=== PATIENT | female | born 1980 | race Caucasian/White ===

== ENCOUNTER 2020-09-30 11:15 | Emergency (ER) | payer OTHER, SELFPAY ==
[2020-09-30 11:20] VITALS: BP 155/88; PULSE 79; RESP 15; TEMP 37.2; O2SAT 99; BMI 23.8
[2020-09-30 11:29] VITALS: PULSE 61; O2SAT 100
[2020-09-30 11:30] VITALS: PULSE 62; O2SAT 100
[2020-09-30 11:43] LABS: Add Manual Diff / Slide Review NO; Basophils Absolute Auto 0 /uL (0-100); Basophils Percent Auto 0.3 % (0-2); Eosinophils Absolute Auto 100 /uL (0-450); Eosinophils Percent Auto 1.3 % (2-4); Hemoglobin 15.6 g/dL (12.0-16.0); Lymphocytes Absolute Auto 900 /uL (1100-4500); Lymphocytes Percent Auto 17.5 % (25-40); Mean Corpuscular HGB Conc 33.9 % (30-36); Mean Corpuscular Hemoglobin 33.3 PG (26-34); Mean Corpuscular Volume 98.3 fL (80-100); Monocytes Absolute Auto 400 /uL (0-900); Monocytes Percent Auto 7.5 % (3-14); Neutrophils Absolute Auto 3900 /uL (1500-7000); Neutrophils Percent Auto 73.4 % (50-75); Platelet Count 216 X10^3/uL (150-400); Red Blood Cell Count 4.68 X10^6/uL (4.0-5.2); White Blood Cell Count 5.3 X10^3/uL (4.5-11.0)
[2020-09-30 11:44] LABS: Prothrombin Time 11.1 SECONDS (10.1-12.7)
[2020-09-30 11:47] LABS: PTT Partial Thromboplastin Tim 27 SECONDS (26.4-36.2)
[2020-09-30 11:49] LABS: Alanine Aminotransferase 19 IU/L (<35); Albumin 5.1 g/dL (3.5-5.0); Albumin Globulin Ratio 1.2 (1.0-2.8); Alkaline Phosphatase 49 U/L (38-126); Aspartate Aminotransferase 39 IU/L (14-36); BUN Creatinine Ratio 23.1 (6-22); Bilirubin Total 1.1 mg/dL (0.2-1.3); Blood Urea Nitrogen 12 mg/dL (7-17); Carbon Dioxide 27 mmol/L (22-32); Chloride 101 mmol/L (98-107); Estimated Glomerular Filt Rate > 60.0 mL/min (>60); Globulin 4.1 g/dL (1.7-4.1); Glucose 100 mg/dL (70-100); Lipase 188 U/L (23-300); Potassium 4.3 mmol/L (3.4-5.1); Sodium 136 mmol/L (137-145); Total Protein 9.2 g/dL (6.3-8.2)
[2020-09-30 11:51] LABS: HEMOLYSIS 87 (0-50)
[2020-09-30 11:51] LABS: Bacteria Urine None Seen; RBC Urine None Seen (0-5/HPF)
[2020-09-30 11:58] LABS: Culture Indicated Urine Cult Not Indicated; Squamous Epithelial Cell Urine 5-10 /HPF (0-5/HPF); WBC Urine 1-5/HPF (0-5/HPF)
[2020-09-30 12:00] VITALS: PULSE 60; O2SAT 100
--- NOTE | 2020-09-30 12:09 | DI.CT.S_ITS ---
PROCEDURE: CT ABDOMEN PELVIS W CON INDICATIONS: RLQ pain, rebound tenderness TECHNIQUE: After the administration of intravenous contrast, 5 mm thick sections acquired from the diaphragm to the symphysis. 5 mm coronal and sagittal reformats were acquired. For radiation dose reduction, the following was used: automated exposure control, adjustment of mA and/or kV according to patient size. COMPARISON: None. FINDINGS: Image quality: Excellent. ABDOMEN: Lung bases: Lung bases are clear. Heart size is normal. Solid organs: Liver is normal in size and enhancement. Gallbladder is within normal limits. Biliary system is non dilated. Pancreas enhances normally. Spleen is normal in size and enhancement. No adrenal nodules. Kidneys demonstrate normal size and enhancement, without hydronephrosis. Peritoneum and bowel: Bowel loops demonstrate normal wall thickness and caliber. No free fluid or air. Appendix is visualized and is normal in size and appearance. Sigmoid diverticulosis is seen, no CT evidence of acute diverticulitis. Nodes and vessels: No retroperitoneal or mesenteric adenopathy by size criteria. Aorta and inferior vena cava are normal in size. Miscellaneous: No ventral hernias. PELVIS: Genitourinary: Bladder wall thickness is normal. 1.7 x 1.9 cm left ovarian cystic structure is noted. No gross abnormality is seen in uterus and right adnexa. Miscellaneous: No inguinal hernias or adenopathy. Bones: No suspicious bony lesions. No vertebral body compression fractures. IMPRESSION: 1. No bowel obstruction. Normal appendix. No abnormal bowel wall thickening. No free fluid or free air. Sigmoid diverticulosis without evidence of acute diverticulitis. 2. Left ovarian cyst as above. 3. No renal stone or hydronephrosis. Dictated by: Christopher Berrios M.D. on 09/30/2020 at 13:24 Approved by: Christopher Berrios M.D. on 09/30/2020 at 13:31
[2020-09-30] MEDS: KETOROLAC 60 MG/2 ML VIAL 30 MG IV (12:21)
[2020-09-30] MEDS: ONDANSETRON 4 MG/2 ML INJ IV (12:21)
[2020-09-30 12:30] VITALS: PULSE 54; O2SAT 100
--- NOTE | 2020-09-30 12:31 | ED.ABDPAIN ---
HPI - Abdominal Pain General Chief Complaint: Abdominal Pain Stated Complaint: center/right side abd pain x7 days Time Seen by Provider: 09/30/20 12:00 Source: patient Mode of arrival: Ambulatory Limitations: no limitations History of Present Illness HPI narrative: 40yo female history of cholecystectomy, presents emergency department for right lower quadrant pain for the past 7 days. She states she has also felt pressure in that area, gassy, nauseated, and has had intermittent diarrhea. Patient states she has been significantly nauseated without vomiting now. [place] was sent to the emergency department for further evaluation. She denies any dysuria, chest pain, shortness of breath, fevers, cough, or any other concerns. Related Data Allergies Allergy/AdvReac Type Severity Reaction Status Date / Time No Known Drug Allergies Allergy Verified 09/30/20 11:27 Review of Systems Review of Systems Narrative: REVIEW OF SYSTEMS: GENERAL: Denies fever. HENT: No head trauma CARDIOVASCULAR: No chest pain. RESPIRATORY: No shortness of breath or cough. GASTROINTESTINAL: Complains of RLQ abdominal pain, see HPI GENITOURINARY: No flank pain or dysuria. MUSCULOSKELETAL: No pain, weakness, or trauma. INTEGUMENTARY: No rash. Patient History Medical History No significant medical problems Social History Smoking Status: Unknown if ever smoked Smoking Status: Unknown if ever smoked alcohol intake frequency: 3 or more drinks per day Substance Use Type: does not use Exam Initial Vital Signs Initial Vital Signs: Vital Signs Temperature 99.0 F 09/30/20 11:20 Pulse Rate 79 09/30/20 11:20 Respiratory Rate 15 09/30/20 11:20 Blood Pressure 155/88 H 09/30/20 11:20 Pulse Oximetry 99 09/30/20 11:20 PHYSICAL EXAMINATION: GENERAL: 40-year-old female, appears to be in moderate pain. No significant distress. HENT: Normocephalic, atraumatic. EYES: Conjunctiva pink, sclera white, no periorbital swelling. CARDIOVASCULAR: S1 and S2 sounds normal. Regular rate and rhythm, no murmurs, clicks, or bruits. No pedal edema. RESPIRATORY: Normal respiratory rate, trachea midline, airway patent. No stridor, nasal flaring or accessory muscle use. Lungs are clear in all [place] without wheeze, rhonchi, or crackles. GASTROINTESTINAL: Bowel sounds normoactive. Abdomen is soft, RLQ tenderness, rebound tenderness present. No organomegaly, no palpable masses. GENITALURINARY: No flank tenderness. MUSCULOSKELETAL: Normal gait and coordination. Equal tone and mass bilaterally. EXTREMITIES: CMS intact, no pedal edema. SKIN: Warm, dry, soft, appropriate color for ethnicity. No lesions, rashes, or wounds to visualized areas. NEURO: Alert and Oriented X 3. Good coordination. No ataxia, or sensory deficits, or cognitive issues. PSYCH: Appropriate affect and mood. Course Orders Ordered: ED Orders 09/30/20 11:20 Complete Blood Count AUTO DIFF Stat Comprehensive Metabolic Panel Stat Lipase Stat Partial Thromboplastin Time Stat Prothrombin Time INR Stat 09/30/20 11:29 EKG-12 Lead Stat 09/30/20 11:38 Urine Microscopic Stat 09/30/20 12:09 CT abdomen pelvis w con Stat Discontinued Medications Ketorolac Tromethamine (Ketorolac 60 Mg/2 Ml Vial) 30 mg IV NOW ONE Stop: 09/30/20 12:10 Last Admin: 09/30/20 12:21 Dose: 30 mg Documented by: LOY Ondansetron HCl (Ondansetron 4 Mg/2 Ml Inj) 4 mg IV NOW ONE Stop: 09/30/20 12:10 Last Admin: 09/30/20 12:21 Dose: 4 mg Documented by: LOY Vital Signs Vital signs: Vital Signs - 8 hr 09/30/20 11:20 09/30/20 11:29 09/30/20 11:30 Temperature 99.0 F Pulse Rate 79 61 62 Respiratory Rate 15 Blood Pressure 155/88 H Pulse Oximetry 99 100 100 09/30/20 12:00 Temperature Pulse Rate 60 Respiratory Rate Blood Pressure Pulse Oximetry 100 MDM - Abdominal Pain Lab Data Result diagrams: 09/30/20 11:20 09/30/20 11:20 Labs: Lab Results 09/30/20 09/30/20 09/30/20 Range/Units 11:20 11:20 11:20 WBC 5.3 (4.5-11.0) X10^3/uL RBC 4.68 (4.0-5.2) X10^6/uL Hgb 15.6 (12.0-16.0) g/dL Hct 46.0 (36-46) % MCV 98.3 (80-100) fL MCH 33.3 (26-34) PG MCHC 33.9 (30-36) % RDW 13.0 (11.6-14.8) % Plt Count 216 (150-400) X10^3/uL Neut % (Auto) 73.4 (50-75) % Lymph % (Auto) 17.5 L (25-40) % Morris % (Auto) 7.5 (3-14) % Eos % (Auto) 1.3 L (2-4) % Baso % (Auto) 0.3 (0-2) % Neut # (Auto) 3900 (6610-4208) /uL Lymph # (Auto) 900 L (0465-3262) /uL Morris # (Auto) 400 (0-900) /uL Eos # (Auto) 100 (0-450) /uL Baso # (Auto) 0 (0-100) /uL PT 11.1 (10.1-12.7) SECONDS INR 1.0 (0.9-1.3) APTT 27 (26.4-36.2) SECONDS Sodium 136 L (137-145) mmol/L Potassium 4.3 (3.4-5.1) mmol/L Chloride 101 (98-107) mmol/L Carbon Dioxide 27 (22-32) mmol/L BUN 12 (7-17) mg/dL Creatinine 0.52 (0.52-1.04) mg/dL Estimated GFR > 60.0 (>60) mL/min BUN/Creatinine Ratio 23.1 H (6-22) Glucose 100 (70-100) mg/dL Calcium 10.0 (8.4-10.2) mg/dL Total Bilirubin 1.1 (0.2-1.3) mg/dL AST 39 H (14-36) IU/L ALT 19 (<35) IU/L Alkaline Phosphatase 49 (38-126) U/L Total Protein 9.2 H (6.3-8.2) g/dL Albumin 5.1 H (3.5-5.0) g/dL Globulin 4.1 (1.7-4.1) g/dL Albumin/Globulin Ratio 1.2 (1.0-2.8) Lipase 188 (23-300) U/L Urine RBC (0-5/HPF) Urine WBC (0-5/HPF) Ur Squamous Epith Cells (0-5/HPF) Urine Bacteria (None) Ur Culture Indicated? 09/30/20 Range/Units 11:38 WBC (4.5-11.0) X10^3/uL RBC (4.0-5.2) X10^6/uL Hgb (12.0-16.0) g/dL Hct (36-46) % MCV (80-100) fL MCH (26-34) PG MCHC (30-36) % RDW (11.6-14.8) % Plt Count (150-400) X10^3/uL Neut % (Auto) (50-75) % Lymph % (Auto) (25-40) % Morris % (Auto) (3-14) % Eos % (Auto) (2-4) % Baso % (Auto) (0-2) % Neut # (Auto) (4199-8017) /uL Lymph # (Auto) (4794-8841) /uL Morris # (Auto) (0-900) /uL Eos # (Auto) (0-450) /uL Baso # (Auto) (0-100) /uL PT (10.1-12.7) SECONDS INR (0.9-1.3) APTT (26.4-36.2) SECONDS Sodium (137-145) mmol/L Potassium (3.4-5.1) mmol/L Chloride (98-107) mmol/L Carbon Dioxide (22-32) mmol/L BUN (7-17) mg/dL Creatinine (0.52-1.04) mg/dL Estimated GFR (>60) mL/min BUN/Creatinine Ratio (6-22) Glucose (70-100) mg/dL Calcium (8.4-10.2) mg/dL Total Bilirubin (0.2-1.3) mg/dL AST (14-36) IU/L ALT (<35) IU/L Alkaline Phosphatase (38-126) U/L Total Protein (6.3-8.2) g/dL Albumin (3.5-5.0) g/dL Globulin (1.7-4.1) g/dL Albumin/Globulin Ratio (1.0-2.8) Lipase (23-300) U/L Urine RBC None seen (0-5/HPF) Urine WBC 1-5/hpf (0-5/HPF) Ur Squamous Epith Cells 5-10 /hpf H (0-5/HPF) Urine Bacteria None seen (None) Ur Culture Indicated? Cult not indicated Point of care testing: Point of Care Testing Test Results Negative Urine Dip Bedside Urine Glucose Negative Bedside Urine Bilirubin - Negative Bedside Urine Ketone - Negative Urine Specific [place] 1.015 Bedside Urine Occult Blood - Negative Bedside Urine pH 6 Bedside Urine Protein - Negative Bedside Urine Urobilinogen - Negative Bedside Urine Nitrite - Negative Bedside Urine Leukocytes +/- 15 Esterase
--- NOTE | 2020-09-30 12:51 | ED_ITS ---
HPI - Abdominal Pain <WILY Duffy - Last Filed: 09/30/20 19:59> General Chief Complaint: Abdominal Pain Stated Complaint: center/right side abd pain x7 days Time Seen by Provider: 09/30/20 12:00 Source: patient Mode of arrival: Ambulatory Limitations: no limitations History of Present Illness HPI narrative: 40-year-old female with a history of cholecystectomy, presents to the emergency department for right lower quadrant pain for the past 7 days. She states she has had pressure in that area, intermittent nausea without vomiting, and intermittent diarrhea for the past 7 days. She was seen and evaluated on based today in sent to the ED for further evaluation. Patient denies any fevers, cough, shortness of breath, chest pain, dizziness, or dysuria. Related Data Previous Rx's Medication Instructions Recorded ondansetron 4 mg PO Q6H PRN #10 tab 09/30/20 Allergies Allergy/AdvReac Type Severity Reaction Status Date / Time No Known Drug Allergies Allergy Verified 09/30/20 11:27 Review of Systems <WILY Duffy - Last Filed: 09/30/20 19:59> Review of Systems Narrative: REVIEW OF SYSTEMS: GENERAL: Denies fever, chills, malaise, or wt. loss. HENT: No head trauma. CARDIOVASCULAR: No chest pain. RESPIRATORY: No shortness of breath or cough. GASTROINTESTINAL: Complains of RLQ abdominal pain, see HPI GENITOURINARY: No flank pain. MUSCULOSKELETAL: No pain, weakness, or trauma. INTEGUMENTARY: No rash, lesions, or pruritus. NEURO: No numbness or tingling. PSYCH: No behavior or mood changes. Patient History <WILY Duffy - Last Filed: 09/30/20 19:59> Medical History No significant medical problems Social History Smoking Status: Unknown if ever smoked Smoking Status: Unknown if ever smoked alcohol intake frequency: 3 or more drinks per day Substance Use Type: does not use Exam <WILY Duffy - Last Filed: 09/30/20 19:59> Initial Vital Signs Initial Vital Signs: Vital Signs Temperature 99.0 F 09/30/20 11:20 Pulse Rate 79 09/30/20 11:20 Respiratory Rate 15 09/30/20 11:20 Blood Pressure 155/88 H 09/30/20 11:20 Pulse Oximetry 99 09/30/20 11:20 PHYSICAL EXAMINATION: GENERAL: 40-year-old female appears to be uncomfortable but no distress or severe pain. HENT: Normocephalic, atraumatic. Hearing intact. Oral mucosa is pink and moist. EYES: Conjunctiva pink, sclera white, no periorbital swelling. CARDIOVASCULAR: S1 and S2 sounds normal. Regular rate and rhythm, no murmurs, clicks, or bruits. No pedal edema. RESPIRATORY: Normal respiratory rate, trachea midline, airway patent. No stridor, nasal flaring or accessory muscle use. Lungs are clear in all hobson without wheeze, rhonchi, or crackles. GASTROINTESTINAL: Bowel sounds normoactive. Abdomen is soft and right lower quadrant tenderness, rebound tenderness present.. No organomegaly, no palpable masses. GENITALURINARY: No flank tenderness. MUSCULOSKELETAL: Normal gait and coordination. Equal tone and mass bilaterally. EXTREMITIES: CMS intact, no pedal edema. SKIN: Warm, dry, soft, appropriate color for ethnicity. No lesions, rashes, or wounds to visualized areas. NEURO: Alert and Oriented X 3. Good coordination. PSYCH: Appropriate affect and mood. <Koki Gray DO - Last Filed: 10/01/20 07:29> Initial Vital Signs Initial Vital Signs: Vital Signs Temperature 99.0 F 09/30/20 11:20 Pulse Rate 79 09/30/20 11:20 Respiratory Rate 15 09/30/20 11:20 Blood Pressure 155/88 H 09/30/20 11:20 Pulse Oximetry 99 09/30/20 11:20 Course <WILY Duffy - Last Filed: 09/30/20 19:59> Course Course Narrative: Patient states decreased pain and nausea after admit occasion menstruation. Orders Ordered: Discontinued Medications Famotidine (Pepcid) 20 mg in 50 mls @ 200 mls/hr IV NOW ONE Stop: 09/30/20 13:54 Last Admin: 09/30/20 13:57 Dose: Not Given Documented by: LOY Ketorolac Tromethamine (Ketorolac 60 Mg/2 Ml Vial) 30 mg IV NOW ONE Stop: 09/30/20 12:10 Last Admin: 09/30/20 12:21 Dose: 30 mg Documented by: LOY Ondansetron HCl (Ondansetron 4 Mg/2 Ml Inj) 4 mg IV NOW ONE Stop: 09/30/20 12:10 Last Admin: 09/30/20 12:21 Dose: 4 mg Documented by: LOY Vital Signs Vital signs: Vital Signs - 8 hr 09/30/20 12:00 09/30/20 12:30 09/30/20 14:16 Pulse Rate 60 54 L 63 Respiratory Rate 18 Blood Pressure 118/80 Pulse Oximetry 100 100 98 <Koki Gray DO - Last Filed: 10/01/20 07:29> Orders Ordered: Discontinued Medications Famotidine (Pepcid) 20 mg in 50 mls @ 200 mls/hr IV NOW ONE Stop: 09/30/20 13:54 Last Admin: 09/30/20 13:57 Dose: Not Given Documented by: LOY Ketorolac Tromethamine (Ketorolac 60 Mg/2 Ml Vial) 30 mg IV NOW ONE Stop: 09/30/20 12:10 Last Admin: 09/30/20 12:21 Dose: 30 mg Documented by: LOY Ondansetron HCl (Ondansetron 4 Mg/2 Ml Inj) 4 mg IV NOW ONE Stop: 09/30/20 12:10 Last Admin: 09/30/20 12:21 Dose: 4 mg Documented by: LOY Vital Signs Vital signs: Vital Signs - 8 hr 09/30/20 12:00 09/30/20 12:30 09/30/20 14:16 Pulse Rate 60 54 L 63 Respiratory Rate 18 Blood Pressure 118/80 Pulse Oximetry 100 100 98 MDM - Abdominal Pain <WILY Duffy - Last Filed: 09/30/20 19:59> Medical Records Attestation: I reviewed the patient's medical records. Lab Data Attestation: I reviewed the patient's lab results. Result diagrams: 09/30/20 11:20 09/30/20 11:20 Labs: Lab Results 09/30/20 09/30/20 09/30/20 Range/Units 11:20 11:20 11:20 WBC 5.3 (4.5-11.0) X10^3/uL RBC 4.68 (4.0-5.2) X10^6/uL Hgb 15.6 (12.0-16.0) g/dL Hct 46.0 (36-46) % MCV 98.3 (80-100) fL MCH 33.3 (26-34) PG MCHC 33.9 (30-36) % RDW 13.0 (11.6-14.8) % Plt Count 216 (150-400) X10^3/uL Neut % (Auto) 73.4 (50-75) % Lymph % (Auto) 17.5 L (25-40) % Mobile % (Auto) 7.5 (3-14) % Eos % (Auto) 1.3 L (2-4) % Baso % (Auto) 0.3 (0-2) % Neut # (Auto) 3900 (2571-7573) /uL Lymph # (Auto) 900 L (1392-5683) /uL Mobile # (Auto) 400 (0-900) /uL Eos # (Auto) 100 (0-450) /uL Baso # (Auto) 0 (0-100) /uL PT 11.1 (10.1-12.7) SECONDS INR 1.0 (0.9-1.3) APTT 27 (26.4-36.2) SECONDS Sodium 136 L (137-145) mmol/L Potassium 4.3 (3.4-5.1) mmol/L Chloride 101 (98-107) mmol/L Carbon Dioxide 27 (22-32) mmol/L BUN 12 (7-17) mg/dL Creatinine 0.52 (0.52-1.04) mg/dL Estimated GFR > 60.0 (>60) mL/min BUN/Creatinine Ratio 23.1 H (6-22) Glucose 100 (70-100) mg/dL Calcium 10.0 (8.4-10.2) mg/dL Total Bilirubin 1.1 (0.2-1.3) mg/dL AST 39 H (14-36) IU/L ALT 19 (<35) IU/L Alkaline Phosphatase 49 (38-126) U/L Total Protein 9.2 H (6.3-8.2) g/dL Albumin 5.1 H (3.5-5.0) g/dL Globulin 4.1 (1.7-4.1) g/dL Albumin/Globulin Ratio 1.2 (1.0-2.8) Lipase 188 (23-300) U/L Urine RBC (0-5/HPF) Urine WBC (0-5/HPF) Ur Squamous Epith Cells (0-5/HPF) Urine Bacteria (None) Ur Culture Indicated? 09/30/20 Range/Units 11:38 WBC (4.5-11.0) X10^3/uL RBC (4.0-5.2) X10^6/uL Hgb (12.0-16.0) g/dL Hct (36-46) % MCV (80-100) fL MCH (26-34) PG MCHC (30-36) % RDW (11.6-14.8) % Plt Count (150-400) X10^3/uL Neut % (Auto) (50-75) % Lymph % (Auto) (25-40) % Mobile % (Auto) (3-14) % Eos % (Auto) (2-4) % Baso % (Auto) (0-2) % Neut # (Auto) (8782-6012) /uL Lymph # (Auto) (3836-8315) /uL Mobile # (Auto) (0-900) /uL Eos # (Auto) (0-450) /uL Baso # (Auto) (0-100) /uL PT (10.1-12.7) SECONDS INR (0.9-1.3) APTT (26.4-36.2) SECONDS Sodium (137-145) mmol/L Potassium (3.4-5.1) mmol/L Chloride (98-107) mmol/L Carbon Dioxide (22-32) mmol/L BUN (7-17) mg/dL Creatinine (0.52-1.04) mg/dL Estimated GFR (>60) mL/min BUN/Creatinine Ratio (6-22) Glucose (70-100) mg/dL Calcium (8.4-10.2) mg/dL Total Bilirubin (0.2-1.3) mg/dL AST (14-36) IU/L ALT (<35) IU/L Alkaline Phosphatase (38-126) U/L Total Protein (6.3-8.2) g/dL Albumin (3.5-5.0) g/dL Globulin (1.7-4.1) g/dL Albumin/Globulin Ratio (1.0-2.8) Lipase (23-300) U/L Urine RBC None seen (0-5/HPF) Urine WBC 1-5/hpf (0-5/HPF) Ur Squamous Epith Cells 5-10 /hpf H (0-5/HPF) Urine Bacteria None seen (None) Ur Culture Indicated? Cult not indicated Point of care testing: Point of Care Testing Test Results Negative Urine Dip Bedside Urine Glucose Negative Bedside Urine Bilirubin - Negative Bedside Urine Ketone - Negative Urine Specific [place] 1.015 Bedside Urine Occult Blood - Negative Bedside Urine pH 6 Bedside Urine Protein - Negative Bedside Urine Urobilinogen - Negative Bedside Urine Nitrite - Negative Bedside Urine Leukocytes +/- [address] scan - abdomen/pelvis: Radiologist's Impression: [address] [id number] Scan ReportSigned Patient: Dasia Tom [facility]#: [id number]: 1980Acct:[id number]/Sex: 40 / FDate of Service: 09/30/20Loc: EDAccession Number: [id number] Procedure: CT abdomen pelvis w con Ordering Provider: Micki Mullen PROCEDURE: CT ABDOMEN PELVIS W CON INDICATIONS: RLQ pain, rebound tenderness TECHNIQUE: After the administration of intravenous contrast, 5 mm thick sections acquired from the diaphragm to the symphysis. 5 mm coronal and sagittal reformats were acquired. For radiation dose reduction, the following was used: automated exposure control, adjustment of mA and/or kV according to patient size. COMPARISON: None. FINDINGS: Image quality: Excellent. ABDOMEN: Lung bases: Lung bases are clear. Heart size is normal. Solid organs: Liver is normal in size and enhancement. Gallbladder is within normal limits. Biliary system is non dilated. Pancreas enhances normally. Spleen is normal in size and enhancement. No adrenal nodules. Kidneys demonstrate normal size and enhancement, without hydronephrosis. Peritoneum and bowel: Bowel loops demonstrate normal wall thickness and caliber. No free fluid or air. Appendix is visualized and is normal in size and appearance. Sigmoid diverticulosis is seen, no CT evidence of acute diverticulitis. Nodes and vessels: No retroperitoneal or mesenteric adenopathy by size criteria. Aorta and inferior vena cava are normal in size. Miscellaneous: No ventral hernias. PELVIS: Genitourinary: Bladder wall thickness is normal. 1.7 x 1.9 cm left ovarian cystic structure is noted. No gross abnormality is seen in uterus and right adnexa. Miscellaneous: No inguinal hernias or adenopathy. Bones: No suspicious bony lesions. No vertebral body compression fractures. IMPRESSION: 1. No bowel obstruction. Normal appendix. No abnormal bowel wall thickening. No free fluid or free air. Sigmoid diverticulosis without evidence of acute diverticulitis. 2. Left ovarian cyst as above. 3. No renal stone or hydronephrosis. Dictated by: Christopher Berrios M.D. on 09/30/2020 at 13:24 Approved by: Christopher Berrios M.D. on 09/30/2020 at 13:31 MDM Narrative Medical decision making narrative: 40-year-old female presents emergency department for right lower quadrant pain. Differential includes enteritis versus viral etiology. Less likely acute appendicitis or ovarian issues or renal calculi as CT is negative for any suspicious findings that would increased concern for these. Laboratory work is within normal limits, less concern for infection given normal white blood cell count. Less concern for pelvic etiology given lack of vaginal discharge, no pelvic cramping. Urinalysis within normal limits, less concern for UTI. Patient was encouraged to follow up with PCP in the next week for further evaluation and testing. Return precautions given for new or worsening symptoms. She agrees to plan of care verbalized understanding. <Koki Gray, DO - Last Filed: 10/01/20 07:29> Lab Data Labs: Lab Results 09/30/20 09/30/20 09/30/20 Range/Units 11:20 11:20 11:20 WBC 5.3 (4.5-11.0) X10^3/uL RBC 4.68 (4.0-5.2) X10^6/uL Hgb 15.6 (12.0-16.0) g/dL Hct 46.0 (36-46) % MCV 98.3 (80-100) fL MCH 33.3 (26-34) PG MCHC 33.9 (30-36) % RDW 13.0 (11.6-14.8) % Plt Count 216 (150-400) X10^3/uL Neut % (Auto) 73.4 (50-75) % Lymph % (Auto) 17.5 L (25-40) % Mobile % (Auto) 7.5 (3-14) % Eos % (Auto) 1.3 L (2-4) % Baso % (Auto) 0.3 (0-2) % Neut # (Auto) 3900 (6736-1259) /uL Lymph # (Auto) 900 L (5105-5238) /uL Mobile # (Auto) 400 (0-900) /uL Eos # (Auto) 100 (0-450) /uL Baso # (Auto) 0 (0-100) /uL PT 11.1 (10.1-12.7) SECONDS INR 1.0 (0.9-1.3) APTT 27 (26.4-36.2) SECONDS Sodium 136 L (137-145) mmol/L Potassium 4.3 (3.4-5.1) mmol/L Chloride 101 (98-107) mmol/L Carbon Dioxide 27 (22-32) mmol/L BUN 12 (7-17) mg/dL Creatinine 0.52 (0.52-1.04) mg/dL Estimated GFR > 60.0 (>60) mL/min BUN/Creatinine Ratio 23.1 H (6-22) Glucose 100 (70-100) mg/dL Calcium 10.0 (8.4-10.2) mg/dL Total Bilirubin 1.1 (0.2-1.3) mg/dL AST 39 H (14-36) IU/L ALT 19 (<35) IU/L Alkaline Phosphatase 49 (38-126) U/L Total Protein 9.2 H (6.3-8.2) g/dL Albumin 5.1 H (3.5-5.0) g/dL Globulin 4.1 (1.7-4.1) g/dL Albumin/Globulin Ratio 1.2 (1.0-2.8) Lipase 188 (23-300) U/L Urine RBC (0-5/HPF) Urine WBC (0-5/HPF) Ur Squamous Epith Cells (0-5/HPF) Urine Bacteria (None) Ur Culture Indicated? 09/30/20 Range/Units 11:38 WBC (4.5-11.0) X10^3/uL RBC (4.0-5.2) X10^6/uL Hgb (12.0-16.0) g/dL Hct (36-46) % MCV (80-100) fL MCH (26-34) PG MCHC (30-36) % RDW (11.6-14.8) % Plt Count (150-400) X10^3/uL Neut % (Auto) (50-75) % Lymph % (Auto) (25-40) % Mobile % (Auto) (3-14) % Eos % (Auto) (2-4) % Baso % (Auto) (0-2) % Neut # (Auto) (3599-1110) /uL Lymph # (Auto) (1999-4110) /uL Mobile # (Auto) (0-900) /uL Eos # (Auto) (0-450) /uL Baso # (Auto) (0-100) /uL PT (10.1-12.7) SECONDS INR (0.9-1.3) APTT (26.4-36.2) SECONDS Sodium (137-145) mmol/L Potassium (3.4-5.1) mmol/L Chloride (98-107) mmol/L Carbon Dioxide (22-32) mmol/L BUN (7-17) mg/dL Creatinine (0.52-1.04) mg/dL Estimated GFR (>60) mL/min BUN/Creatinine Ratio (6-22) Glucose (70-100) mg/dL Calcium (8.4-10.2) mg/dL Total Bilirubin (0.2-1.3) mg/dL AST (14-36) IU/L ALT (<35) IU/L Alkaline Phosphatase (38-126) U/L Total Protein (6.3-8.2) g/dL Albumin (3.5-5.0) g/dL Globulin (1.7-4.1) g/dL Albumin/Globulin Ratio (1.0-2.8) Lipase (23-300) U/L Urine RBC None seen (0-5/HPF) Urine WBC 1-5/hpf (0-5/HPF) Ur Squamous Epith Cells 5-10 /hpf H (0-5/HPF) Urine Bacteria None seen (None) Ur Culture Indicated? Cult not indicated Point of care testing: Point of Care Testing Test Results Negative Urine Dip Bedside Urine Glucose Negative Bedside Urine Bilirubin - Negative Bedside Urine Ketone - Negative Urine Specific [place] 1.015 Bedside Urine Occult Blood - Negative Bedside Urine pH 6 Bedside Urine Protein - Negative Bedside Urine Urobilinogen - Negative Bedside Urine Nitrite - Negative Bedside Urine Leukocytes +/- 15 Esterase Discharge Plan Departure Patient Disposition: Home Clinical Impression: Abdominal pain Qualifiers: Abdominal location: right lower quadrant Qualified Code(s): R10.31 - Right lower quadrant pain Instructions: Acute Abdominal Pain, DI for Viral Gastroenteritis -- Adult Activity Restrictions/Additional Instructions: Thank you for entrusting me with your care today. As discussed, your CT negative for any concerning findings. Your urine and laboratory results are normal. I am unsure the exact cause of your pain, this may be related to viral illness. I prescribed you some nausea medicine called ondansetron, uses as needed. I recommend a bland diet such as the brat diet (bananas, rice, apples and toast) for the next few days to help with diarrhea. Please make an appointment to follow-up with your primary care provider in the next week for further evaluation. Return emergency department for any new or worsening symptoms. Prescriptions: New ondansetron 4 mg tablet,disintegrating 4 mg PO Q6H PRN (Reason: nausea and vomiting) Qty: 10 RF: 0 Referrals: Thea Mckeon ARNP [Primary Care Provider] - <Koki Gray DO - Last Filed: 10/01/20 07:29> Cosign ED Attending Cosleathaature Attestation: I was immediately available in the department for consultation. This docum entation has been reviewed and I agree with assessment and plan. Supervised by Koik Gray DO
[2020-09-30 14:16] VITALS: BP 118/80; PULSE 63; RESP 18; O2SAT 98
== END 2020-09-30 14:16 | disposition home or self-care (01) ==
PROVIDERS: Emergency Medicine; Emergency Provider Nurse Practitioner; PCP Nurse Practitioner Family
DX: R10.31 Right lower quadrant pain (principal); R11.0 Nausea; R19.7 Diarrhea, unspecified
CPT/HCPCS: 36415; 74177; 80053; 81003; 81015; 81025; 83690; 85025; 85610; 85730; 96374; 96375; 99283; 99284; J1885; J2405

== ENCOUNTER → 2022-06-01 16:07 | Outpatient (CLI) | payer OTHER, SELFPAY ==
[2022-06-01 17:55] LABS: COVID19 -Nasal RAPID Negative (Negative)
== END ==
PROVIDERS: Visit Provider Obstetrics & Gynecology
DX: Z20.822 Contact with and (suspected) exposure to COVID-19 (principal); Z01.812 Encounter for preprocedural laboratory examination
CPT/HCPCS: 87635

== ENCOUNTER 2022-06-06 03:17 | Emergency (ER) | payer OTHER, SELFPAY ==
[2022-06-06 03:25] VITALS: BP 123/79; PULSE 74; RESP 20; TEMP 36; O2SAT 98; BMI 24.0
--- NOTE | 2022-06-06 04:20 | ED.WOUNDLAC ---
HPI - Wound/Laceration General Chief Complaint: Wound/Laceration Stated Complaint: SPLIT LIP OPEN Time Seen by Provider: 06/06/22 04:20 Source: patient and family Mode of arrival: Ambulatory History of Present Illness HPI narrative: 42-year-old woman scheduled for hysterectomy later this morning was post be presenting to the hospital at 5:00 a.m. this morning for COVID test preprocedure had an episode last night where her thinks she may have been sleepwalking she stumbled fell hit the lower portion of her lip upper portion of her chin on the baseboard at the end of their bed. She has significant laceration that does not go through and through from the outside she also has a smaller laceration where her teeth hit that again does not communicate completely through. She smells strongly of alcohol has complaints consistent with her reasons for hysterectomy scheduled to. 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 Related Data Home Medications Medication Instructions Recorded Confirmed losartan 50 mg tablet 50 mg PO DAILY 05/30/22 05/30/22 Previous Rx's Medication Instructions Recorded hydrocodone 5 mg-acetaminophen 325 1 tab PO Q6H PRN severe pain #20 05/12/22 mg tablet tabs Allergies Allergy/AdvReac Type Severity Reaction Status Date / Time No Known Drug Allergies Allergy Verified 05/30/22 08:17 Review of Systems Review of Systems Narrative: Remainder of complete review of systems is otherwise unremarkable except for that included in the HPI. Patient History Medical History Abnormal uterine bleeding (AUB) Depression Herpes (~1999) No significant medical problems Pelvic pain Psoriasis PTSD (post-traumatic stress disorder) Severe dysmenorrhea Surgical History Anesthesia Breast cyst (~1998) Family History (Updated 05/15/22 @ 19:54 by Olivia Amador MD) Mother Diabetes mellitus Hypertension Hyperlipidemia Mental health problem Breast cancer Social History household members: spouse and children Smoking Status: Unknown if ever smoked alcohol intake: current Smoking Status: Unknown if ever smoked alcohol intake frequency: 0-2 drinks per day Substance Use Type: does not use Exam Initial Vital Signs Initial Vital Signs: Vital Signs Temperature 96.8 F L 06/06/22 03:25 Pulse Rate 74 06/06/22 03:25 Respiratory Rate 20 06/06/22 03:25 Blood Pressure 123/79 06/06/22 03:25 Pulse Oximetry 98 06/06/22 03:25 Oxygen Delivery Method 06/06/22 03:25 General: Sleepy, somewhat intoxicated but cooperative HEENT: 3 cm laceration lower lip not involving the vermilion border and not communicating with buccal mucosa that appears to be from hitting the hard linear edge of a her bed. She has a 2 cm laceration on the inner portion of her lip completely separate from the outer laceration that appears to be from her teeth cutting the buccal mucosa, this is not communicate completely through. There is no obvious dental injury. Neck: No cervical spine tenderness Respiratory: Able to speak in full sentences, no obvious respiratory distress Skin: No obvious rashes, warm and dry Neurologic: Grossly intact no obvious asymmetries or abnormalities Psych: appropriate insight and affect, cooperative Procedures Laceration Repair Inner lower lip: Time of procedure: 05:00 Site: lip Size (cm): 2 Description: linear Depth: simple, single layer Local Anesthetic: lidocaine 1% and with bicarb Amount of anesthesia used (mL): 2 Pre-repair: wound explored and deep structures intact Skin layer closed with: vicryl Skin layer suture size: 4-0 Number of sutures: 2 Technique: other (subcuticular for closure of deep space, loosely approximated buccal mucosal surface) outer lower lip: Time of procedure: 05:03 Site: lip Size (cm): 3 Description: linear Depth: simple, single layer Local Anesthetic: lidocaine 1% and with bicarb Amount of anesthesia used (mL): 3 Pre-repair: wound explored Skin layer closed with: nylon Skin layer suture size: 4-0 Number of sutures: 5 Technique: simple, interrupted Course Orders Ordered: ED Orders 06/06/22 04:28 COVID19 -Nasal RAPID/Pre-Proc Stat Discontinued Medications Lidocaine/Sodium Bicarbonate (Lido 1%/Sod Bicarb 8.4% (10ml) 10 Ml Syringe) 10 ml INJ NOW ONE Stop: 06/06/22 04:28 Last Admin: 06/06/22 04:33 Dose: 10 ml Vital Signs Vital signs: Vital Signs - 8 hr 06/06/22 03:25 Temperature 96.8 F L Pulse Rate 74 Respiratory Rate 20 Blood Pressure 123/79 Pulse Oximetry 98 Oxygen Delivery Method Room Air MDM - Wound/Laceration Lab Data Labs: Lab Results 06/06/22 Range/Units 04:25 SARS-CoV-2 (PCR) Negative (Negative) MDM Narrative Medical decision making narrative: 42-year-old woman whose father last night. She was upset regarding this and did have some alcohol last night. She believes she got up to go to the bathroom stumbled getting back into bed and hit her lower lip on the edge of the baseboard. Her thought that she may have been sleepwalking. She does not remember the fall itself. She has a 3 cm laceration on the outer lower lip and a 2 cm laceration on the buccal mucosa of the lower lip these do not communicate. Both were repaired with out complication. She is scheduled for hysterectomy later this morning was post to have a COVID test done at 5:00 a.m. and come back for surgical intake at 6:15 a.m. this morning. COVID test was done from the emergency department. Will let the OR crew no that she is in room 7 in the emergency department and will be discharged. Discharge Plan Departure Patient Disposition: Home Clinical Impression: Laceration Instructions: DI for Laceration Repair Activity Restrictions/Additional Instructions: You fell getting back into bed this evening and hit your lower lip. There are 5 sutures on the outer part of your lip that will need to be removed on or about June 12. There are 2 stitches just under the surface of the cut on the inside of your lip. These will dissolve. Good luck with your hysterectomy today I am very sorry to hear about the of your father. Prescriptions: No Action hydrocodone-acetaminophen 5-325 mg tablet 1 tab PO Q6H PRN (Reason: severe pain) Qty: 20 0RF losartan 50 mg tablet 50 mg PO DAILY
[2022-06-06] MEDS: LIDO 1%/SOD BICARB 8.4% (10ML) 10 ML SYRINGE INJ (04:33)
[2022-06-06 04:50] LABS: COVID19 -Nasal RAPID Negative (Negative)
[2022-06-06 06:20] VITALS: BP 106/61; PULSE 65; RESP 18; O2SAT 100
== END 2022-06-06 06:20 | disposition home or self-care (01) ==
PROVIDERS: Emergency Provider Emergency Medicine
DX: S01.511A Laceration without foreign body of lip, initial encounter (principal); S01.512A Laceration without foreign body of oral cavity, initial encounter; W01.198A Fall on same level from slipping, tripping and stumbling with subsequent striking against other object, initial encounter; Z20.822 Contact with and (suspected) exposure to COVID-19
CPT/HCPCS: 12013; 87635; 99282; 99283; C9803

== ENCOUNTER → 2022-06-06 06:27 | Day surgery (SDC) | payer OTHER, SELFPAY ==
[2022-05-30 14:36] VITALS: BMI 24.3
[2022-06-06 07:05] VITALS: BP 99/70; PULSE 63; RESP 16; TEMP 36.4; O2SAT 94; BMI 24.3
--- NOTE | 2022-06-06 07:27 | PM.PREOP ---
Pre-operative Note COVID-19 COVID-19 status: Negative Result date/Date tested (Pos, Neg/Pending): 06/06/22 Criteria for continued procedure: Continuing or worsening of significant or severe pain Interval Note History & Physical reviewed/Exam performed by Physician: Yes Changes to H&P: No H&P completed within 30 days and has changed as indicated here:: fall this am with ED visit noted, sutures to chin
--- NOTE | 2022-06-06 08:29 | SUR.PREOP ---
Pt. was see by Felix BATRES and the decision was made to cancel surgery for today due to fall at home and 0300 er visit. IV d/c'd notified and pt. d/c'd home .
== END | disposition home or self-care (01) ==
PROVIDERS: Referring Provider Obstetrics & Gynecology; Visit Provider Obstetrics & Gynecology
DX: N92.1 Excessive and frequent menstruation with irregular cycle (principal); R10.2 Pelvic and perineal pain; Z53.09 Procedure and treatment not carried out because of other contraindication
CPT/HCPCS: 58542; 12013; 87635; 99283; C9803; J2250; J3010

== ENCOUNTER → 2022-06-08 11:53 | Outpatient (CLI) | payer OTHER, SELFPAY ==
[2022-06-08 12:54] LABS: COVID19 -Nasal RAPID Negative (Negative)
== END ==
PROVIDERS: Visit Provider Obstetrics & Gynecology
DX: Z20.822 Contact with and (suspected) exposure to COVID-19 (principal); Z01.812 Encounter for preprocedural laboratory examination
CPT/HCPCS: 87635

== ENCOUNTER 2022-06-09 06:26 | Day surgery (SDC) | payer OTHER, SELFPAY ==
[2022-06-07 10:52] VITALS: BMI 24.3
[2022-06-09] VITALS (10 sets, daily range): BP systolic 102–137; BP diastolic 59–91; PULSE 59–85; RESP 16–20; TEMP 36.2–37; O2SAT 98–100; BMI 24.3
--- NOTE | 2022-06-09 | PATH_ITS ---
[facility] Accession Number: [id number] . 01 Material submitted: . uterus - UTERUS AND BILATERAL FALLOPIAN TUBES . 01 Diagnosis: Uterus and Bilateral Fallopian Tubes, Supracervical Hysterectomy: Proliferative endometrium; no atypical hyperplasia or malignancy. Benign leiomyomas. Bilateral fimbriated fallopian tubes with complete cross-section of the lumen identified, and with benign paratubal cysts. V 06/13/2022 1052 Local . 01 Electronically signed: . Katie Lucas MD, Pathologist NPI- [id number] . 01 Gross description: . Received in formalin, labeled with the patient's name and uterus and bilateral fallopian tubes, and consists of a fragmented uterus weighing 90 g and aggregating to 9.3 x 7.5 x 5.3 cm with two attached fallopian tubes measuring 6.6 x 0.7 cm and 5.5 x 0.9 cm, respectively. No cervix or ovaries are identified. The uterine serosa is wright and wrinkled with no areas of hemorrhage. The endometrial cavity cannot be identified, but the possible endometrium is wright and velvety and averages 0.1 cm thick. The myometrium is wright and trabecular with multiple well-circumscribed white, whorled nodules measuring up to 1.3 cm in greatest dimension. The maximum thickness of the myometrium cannot be determined. No hemorrhage, necrosis, or additional lesions are identified. The longer fallopian tube has violaceous, smooth serosa with multiple pedunculated cystic structures near the fimbriated end measuring up to 0.7 cm in greatest dimension. Serial sectioning reveals an unremarkable stellate lumen. The shorter fallopian tube has smooth, violaceous serosa with multiple cystic structures near the fimbriated end measuring up to 0.4 cm in greatest dimension. Sectioning reveals an unremarkable stellate lumen. Physical Security Engineer sections are submitted as follows: A1-A2: Physical Security Engineer endometrium. A3: Physical Security Engineer serosa. A4-A5: Physical Security Engineer well-circumscribed nodules. A6: Longer fallopian tube to include entire fimbriae and telephone service representative cross sections. A7: Marydel fallopian tube to include entire fimbriae and telephone service representative cross sections. ([id number]) /FRR 06/11/2022 1126 Local . 01 Pathologist provided ICD-10: N92.1, R10.2, D25.9 . 01 CPT . 820914 Specimen Comment: A courtesy copy of this report has been sent to [facility] Pathology Performed at: 01 [facility] Cytology [address] [place] [address] [address] [facility], [place], [place] [id number] MD Kody Camarillo MD Phone: [phone]
--- NOTE | 2022-06-09 06:45 | SUR.PREOP ---
Addendum entered by Wendy Severino R.N. 06/09/22 07:23: 0720-ok to proceed with case, iv inserted . admission complete. MD now here to see patient and re consent. Addendum entered by Wendy Severino R.N. 06/09/22 07:07: 0708-admission complete. awaiting word from management as to whether surgery is a go, and an IV can be placed. In hold pattern til then. Patient aware and using phone as diversionary tool. Original Note: 634am-patient arrived in unit. in restroom to change. to bedside at 0645a
[2022-06-09] MEDS: LACTATED RINGERS 1,000 ML 100 ML IV ×3 (07:22→11:20)
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
[2022-06-09] MEDS: APREPITANT 40 MG CAPSULE PO (07:44)
[2022-06-09] MEDS: CEFAZOLIN 2 GM/100 ML PREMIX 100 ML IV (08:10)
[2022-06-09] MEDS: BUPIVACAINE 0.5% W/ EPI (PF) 30 ML VIAL INJ (08:28)
--- NOTE | 2022-06-09 08:40 | SUR.OPER ---
Lithotomy on padded OR bed. Dorr Pad Positioner under torso. Head on pillow, arms padded and tucked at sides. Legs secured in padded yellow fins stirrups.
[2022-06-09] MEDS: ROPIVACAINE 0.2% PF 2 MG/ML 10ML AMP 20 ML INJ (08:46)
[2022-06-09] MEDS: OXYCODONE/ACETAMINOPHEN 5/325 TABLET 1 TAB PO ×2 (10:01→12:14)
--- NOTE | 2022-06-09 10:19 | PM.GYNOP.1 ---
Operative Date/Time/Diagnoses Date of procedure: 06/09/22 Time of procedure: 10:19 Pre-op diagnosis: Abnormal uterine bleeding Dysmenorrhea Fibroids Pelvic pain Post-op diagnosis: same Procedure & Clinicians Procedure: Procedures Operation Date: 06/09/22 07:45 Actual Procedure Side Surgeon p Laparoscopic Assisted Supracervical Hysterectomy W.BSO Olivia Amador MD Laparoscopic supracervical hysterectomy with bilateral salpingectomy Indications: Abnormal uterine bleeding Dysmenorrhea Fibroid uterus Pelvic pain Surgeon: Lorena Lion [employer] Production Manager: Olivia Amador Anesthesia Type: General and Local Operative Notes Findings: 9 week size anteverted uterus Normal tubes and ovaries Normal liver and gallbladder Normal appendix No evidence of endometriosis Closure Type: primary Specimen(s): left tube, right tube and uterus Applied: catheter (Removed at the end of the case) Estimated blood loss (mL): 50 Blood products transfused: none Procedure in detail: The patient was taken to the operating room where she was placed in the dorsal supine position. After adequate general endotracheal anesthesia was achieved, she was placed in the dorsal lithotomy position, and prepped and draped in the usual sterile fashion. A timeout was performed. A bivalve speculum was placed into the vagina and the anterior lip of the cervix grasped with a single-tooth tenaculum. The cervical os was sequentially dilated until the ZUMI uterine manipulator could pass easily into the endometrial cavity. The single-tooth tenaculum was removed from the anterior lip of the cervix, and the bivalve speculum was removed from the vagina. Attention was then turned to the abdomen where 6 mL of half percent Marcaine with epinephrine were injected in the umbilical fold. A 5 mm incision was made. The Verees needle was placed into the peritoneal cavity, and its placement confirmed by aspiration and drop test. The Verees needle was removed. A 5 mm trocar was placed without difficulty. 2 other incisions were made 4 cm lateral to the umbilicus after 5 mL of half percent Marcaine with epinephrine were injected. These were 5 mm incisions. Two 5 mm trocars were placed under direct visualization. The right tube was grasped with an atraumatic grasper. Using the Powerseal, the mesosalpinx was cauterized and cut all the way down to the cornua of the uterus. The cornua of the uterus was then grasped with an atraumatic grasper. The utero-ovarian ligaments were cauterized and cut. The round ligament and broad ligament was cauterized and cut with the power seal. Hemostasis was achieved. The bladder flap was created using the plasma kinetic with cautery and cut mcc across. The uterine arteries on the right side were extensively cauterized with the power seal. All of this was repeated on the left side. The remainder of the bladder flap was created using the power seal, and the bladder taken down off the lower uterine segment and cervix. Using the Endoloop, the cervix was amputated from the uterus 2 cm above the uterosacral ligaments, after the ZUMI uterine manipulator was removed from the uterus. There was a small amount of bleeding noted from the posterior edge of the cervix, and this was cauterized for hemostasis. A sponge stick was placed into the vagina. Using spatula, cauterization of the endocervical canal was performed. 6 mL of half percent Marcaine with epinephrine were injected above the pubic symphysis. A 12 mm trocar was placed. A large Endobag was placed through the suprapubic trocar and the uterus and tubes were placed into the Endobag. The trocar was removed. The edges of the endobag were brought up through the skin. The Akbar was placed into the endobag. The uterus was hand morcellated in approximately 4 pieces. The Endobag was removed from the peritoneal cavity with the Akbar. The fascia on the suprapubic incision was closed with 0 Vicryl in a running fashion. The abdomen was re-insufflated. The pelvis was copiously irrigated with warm normal saline. No bleeding was noted. The instruments were removed from the abdomen. The CO2 was allowed to escape. Two simple interrupted sutures with 3-0 Vicryl were placed in the suprapubic incision. All of the incisions were closed with 4-0 Monocryl in a subcuticular fashion. The moistened sponge stick was removed from the vagina. Sponge, lap, and instrument counts were correct x-2. The patient tolerated the procedure well, was taken to PACU in stable condition. Complications: none Post-operative Condition: stable Disposition: PACU Plan for aftercare: Home after recovery
[2022-06-09] MEDS: HYDROMORPHONE 1 MG INJ IV (11:13)
--- NOTE | 2022-06-09 15:23 | PC.NURSE ---
Pt up at 1215 stood quickly and was slightly light headed. sat down and was improved, up to bathroom, stood for 2-3 minutes after toilet and denied dizziness or lightheadedness. void 250mL yellow urine with scant old blood. Pt requested percocet and was given per DEC.
--- NOTE | 2022-06-09 15:27 | PC.NURSE ---
at 1430 Dr. Amador called and discharged pt. IV right hand discontinued tip intact. Pt called friend for discharge transportation.
--- NOTE | 2022-06-09 15:29 | PC.NURSE ---
1450 Pt discharged stable, to home and was discharged via wheelchair to POV outside ER.
--- NOTE | 2022-06-09 15:34 | PC.NURSE ---
1255 pt consumed 90% general diet order and was not nauseated.
== END 2022-06-09 14:50 | disposition home or self-care (01) ==
LOC: OR 06:30 → AC 10:24 → LABOR 10:36
PROVIDERS: PCP Physician Assistant; Referring Provider Obstetrics & Gynecology; Visit Provider Obstetrics & Gynecology
PROC: 0UT94ZL Resection of Uterus, Supracervical, Percutaneous Endoscopic Approach (ICD-10-PCS; principal; 2022-06-09 07:45)
DX: N83.8 Other noninflammatory disorders of ovary, fallopian tube and broad ligament (principal); D25.1 Intramural leiomyoma of uterus; N93.9 Abnormal uterine and vaginal bleeding, unspecified; N94.6 Dysmenorrhea, unspecified; R10.2 Pelvic and perineal pain; I10 Essential (primary) hypertension; F43.10 Post-traumatic stress disorder, unspecified
CPT/HCPCS: 58542; 81025; 82962; J0690; J1170; J2250; J2795; J3010; J8501

== ENCOUNTER 2022-11-07 20:08 | Emergency (ER) | payer OTHER, SELFPAY ==
[2022-11-07] VITALS (9 sets, daily range): BP systolic 89–110; BP diastolic 55–65; PULSE 64–84; RESP 18; TEMP 36.6; O2SAT 94–99
[2022-11-07 21:08] LABS: Ur Creatinine Normal (Normal); Ur Specific Gravity Normal (Normal); Urine pH Normal (Normal)
[2022-11-07 21:08] LABS: Appearance Urine UA CLEAR; Bilirubin Urine UA NEGATIVE (NEGATIVE); Color Urine UA LT. YELLOW; Glucose Urine UA NEGATIVE (Negative); Ketones Urine UA NEGATIVE (NEGATIVE); Leukocyte Esterase Urine UA NEGATIVE (NEGATIVE); Nitrite Urine UA NEGATIVE (Negative); Occult Blood Urine UA NEGATIVE (Negative); Protein Urine UA NEGATIVE (Negative); Specific Gravity Urine UA <=1.005 (1.000-1.035); Urobilinogen Urine UA 0.2 E.U./dL (0.2)
[2022-11-07 21:09] LABS: UR Morphine/Opiate cutoff 300 Negative (Negative); Urine Amphetamines Negative (Negative); Urine Barbiturates Negative (Negative); Urine Benzodiazepines Positive (Negative); Urine Cocaine Negative (Negative); Urine MDMA Negative (Negative); Urine Methadone Negative (Negative); Urine Methamphetamines Negative (Negative); Urine Oxycodone Negative (Negative); Urine Phencyclidine Negative (Negative); Urine Tetrahydrocannabinol Negative (Negative); Urine Tricyclic Antidepressant Negative (Negative)
[2022-11-07 21:23] LABS: RBC Urine None Seen (0-5/HPF); WBC Urine 0-1/HPF (0-5/HPF)
[2022-11-07 21:24] LABS: Bacteria Urine Occasional (0-1); Culture Indicated Urine Cult Not Indicated; Squamous Epithelial Cell Urine None Seen (0-5/HPF)
[2022-11-07 21:41] LABS: Acetaminophen < 10 ug/mL (10-30); Alanine Aminotransferase 28 IU/L (<35); Albumin Globulin Ratio 1.2 (1.0-2.8); Alkaline Phosphatase 52 U/L (38-126); Aspartate Aminotransferase 38 IU/L (14-36); BUN Creatinine Ratio 20.3 (6-22); Bilirubin Total 0.4 mg/dL (0.2-1.3); Blood Urea Nitrogen 15 mg/dL (7-17); Calcium 8.7 mg/dL (8.4-10.2); Carbon Dioxide 21 mmol/L (22-32); Chloride 106 mmol/L (98-107); Estimated Glomerular Filt Rate > 60 mL/min (>60); Ethanol (ETOH) 124 mg/dL; Globulin 3.3 g/dL (1.7-4.1); Glucose 79 mg/dL (70-100); HEMOLYSIS < 15 (0-50); Potassium 3.9 mmol/L (3.4-5.1); Salicylate < 1.0 mg/dL (<20); Sodium 140 mmol/L (137-145); Total Protein 7.3 g/dL (6.3-8.2)
[2022-11-07 21:42] LABS: Add Manual Diff / Slide Review NO; Basophils Absolute Auto 100 /uL (0-100); Basophils Percent Auto 1.3 % (0-2); Eosinophils Absolute Auto 200 /uL (0-450); Eosinophils Percent Auto 2.9 % (2-4); Hematocrit 39.1 % (36-46); Hemoglobin 13.3 g/dL (12.0-16.0); Lymphocytes Absolute Auto 1500 /uL (1100-4500); Lymphocytes Percent Auto 28.5 % (25-40); Monocytes Absolute Auto 500 /uL (0-900); Monocytes Percent Auto 9.7 % (3-14); Neutrophils Absolute Auto 3100 /uL (1500-7000); Neutrophils Percent Auto 57.6 % (50-75); Platelet Count 254 X10^3/uL (150-400); White Blood Cell Count 5.3 X10^3/uL (4.5-11.0)
[2022-11-07 22:12] LABS: Thyroid Stimulating Hormone 1.17 uIU/mL (0.47-4.68)
--- NOTE | 2022-11-07 22:37 | PC.NURSE ---
PROFILE GRINDER TECHNICIAN NOTE pt resting with eyes closed in room. pt belongings were stored away per protocol. she said my son wants to commit suicide and I just want to go to sleep and never wake up
[2022-11-07 22:45] LABS: Free T4, Direct Thyroxine 0.89 ng/dL (0.78-2.19)
[2022-11-08] VITALS: PULSE 68; O2SAT 96
[2022-11-08 00:30] VITALS: PULSE 67; O2SAT 96
[2022-11-08 00:44] VITALS: BP 114/79; PULSE 75; O2SAT 98
--- NOTE | 2022-11-08 01:01 | PC.NURSE ---
pt stating that she wants to go home . made aware
--- NOTE | 2022-11-08 01:34 | ED_ITS ---
HPI - Psych <Antoinette Mesa MD - Last Filed: 11/08/22 18:07> General Chief Complaint: Psychiatric Symptoms Stated Complaint: suicidal Time Seen by Provider: 11/07/22 22:28 Source: patient Mode of arrival: Ambulatory History of Present Illness HPI Narrative: 42-year-old woman with a history of depression was brought in by her friend intoxicated with alcohol and suicidal. She was seen at [facility] on 11/06 22 with an overdose with reportedly benzodiazepines including Valium and Ativan, all of her flu vaccine and acutely intoxicated. After discussion with poison control she was observed in the emergency department for 8 hours medically cleared and then seen by social workers the morning of 11/07. At that time she was felt to be clinically sober, feeling better did not have much recollection of the night before had her psychiatry televideo appointment moved to November 08 was felt to be forward thinking and planning and safe for discharge home. She was discharged from [facility] emergency department around noon and was brought in by a friend to [facility] around 8:15 p.m. with complaints of acute alcohol intoxication and suicidal ideation without discrete plan and no reports of taking any additional pills. Once she has sobered slightly we are able to have a reasonable discussion. She states that she is been struggling with multiple acute situational stressors. Apparently her ex- and 2 older children live in [place], the oldest son, 19, is apparently in the hospital and wants ?nothing to do with her? including updating her on any medical abnormalities. She is currently moving into her own condominium and moving out of the home shared with her current . She is not sure if there simply or truly heading for divorce. There 8-year-old son has said he wants to live with both of them. She said that after being discharged from the emergency department around noon she moved into her new condominium. How she managed to do all of that and become intoxicated enough to end up in the emergency department unless than 8 hours is unclear and needs external validation. She simply states that she wants to harm herself but does not have a discrete plan. When discussing options for her later in the evening after she would sobered she states she is tired and simply wants to go home and sleep in her own bed. She believes she has an appointment with her therapist (unsure if this is a psychiatrist or prescribing therapist, this is the person who prescribes her fluvoxamine) via telemedicine at 1:00 p.m. on the . She states that she wants to be home to have dinner with her son and her . When asked how she ended up back in the emergency room in 8 hours with similar suicidal thoughts she was unable to give a reasonable answer and simply states she wants to go home and ?take a hot shower, eat and drink something and go to bed in her own bed?. Today, she reports no pills or other medications, no cutting. She is had no fever, cough, chills, abdominal pain. It is not complaining of headache. Related Data Home Medications Medication Instructions Recorded Confirmed losartan 50 mg tablet 50 mg PO DAILY 05/30/22 07/07/22 fluvoxamine 50 mg tablet 50 mg DAILY 06/06/22 07/07/22 Previous Rx's Medication Instructions Recorded hydroxyzine HCl 25 mg tablet 25 mg PO BEDTIME PRN sleep #7 tabs 06/06/22 fluconazole 150 mg tablet 150 mg PO DAILY #1 tab 06/16/22 (Diflucan) Allergies Allergy/AdvReac Type Severity Reaction Status Date / Time No Known Drug Allergies Allergy Verified 07/07/22 10:21 Review of Systems <Antoinette Mesa MD - Last Filed: 11/08/22 18:07> Review of Systems Narrative: Remainder of complete review of systems is otherwise unremarkable except for that included in the HPI. Patient History <Antoinette Mesa MD - Last Filed: 11/08/22 18:07> Medical History (Updated 11/08/22 @ 03:02 by Antoinette Mesa MD) Abnormal uterine bleeding (AUB) Depression Herpes (~1999) No significant medical problems Pelvic pain Psoriasis PTSD (post-traumatic stress disorder) Severe dysmenorrhea Surgical History (Updated 07/08/22 @ 22:07 by Olivia Amador MD) Anesthesia Breast cyst (~1998) Status post laparoscopic supracervical hysterectomy (06/09/22) Family History (Updated 05/15/22 @ 19:54 by Olivia Amador MD) Mother Diabetes mellitus Hypertension Hyperlipidemia Mental health problem Breast cancer Social History household members: spouse and children Smoking Status: Former smoker alcohol intake: current Smoking Status: Former smoker alcohol intake frequency: 3 or more drinks per day Substance Use Type: does not use Exam <Antoinette Mesa MD - Last Filed: 11/08/22 18:07> Initial Vital Signs Initial Vital Signs: Vital Signs Temperature 97.9 F 11/07/22 20:15 Pulse Rate 64 11/07/22 20:15 Respiratory Rate 18 11/07/22 20:15 Blood Pressure 99/55 L 11/07/22 20:15 Pulse Oximetry 96 11/07/22 20:15 Oxygen Delivery Method 11/07/22 20:15 General: Appears Emotionally and physically exhausted, moderate eye contact she is able to speak in complete sentences HEENT: Moist mucous membranes, normal sclera with reactive pupils, Respiratory: Lungs are clear to auscultation, no wheezing no rales no rhonchi. Full and symmetrical air movement Cardiac: Regular rate and rhythm no murmurs no bruits Abdomen: Soft, nontender, good bowel tones, no flank pain Skin: Warm and dry, no rashes Neurologic: Grossly neurologically intact with no obvious asymmetries or abnormalities. Near clear signs of alcohol withdrawal Extremities: No trauma, well perfused, no evidence of self cutting Psych: Poor overall insight, significant denial, poor eye contact, fluent speech, no auditory or visual hallucinations <Immanuel Dowd MD - Last Filed: 11/08/22 11:21> Initial Vital Signs Initial Vital Signs: Vital Signs Temperature 97.9 F 11/07/22 20:15 Pulse Rate 64 11/07/22 20:15 Respiratory Rate 18 11/07/22 20:15 Blood Pressure 99/55 L 11/07/22 20:15 Pulse Oximetry 96 11/07/22 20:15 Oxygen Delivery Method 11/07/22 20:15 Course <Antoinette Mesa MD - Last Filed: 11/08/22 18:07> Orders Ordered: Discontinued Medications Lorazepam (Lorazepam 0.5 Mg Tablet) 1 mg PO NOW ONE Stop: 11/08/22 09:16 Last Admin: 11/08/22 09:25 Dose: 1 mg Documented By: RB Nicotine (Nicotine 21 Mg Patch) 21 mg TOP NOW ONE Stop: 11/08/22 03:41 Last Admin: 11/08/22 03:55 Dose: 21 mg Documented By: NEMESIO Nicotine (Nicotine 21 Mg Patch) 21 mg TOP NOW ONE Stop: 11/08/22 09:16 Last Admin: 11/08/22 09:25 Dose: 21 mg Documented By: RB Vital Signs Vital signs: Vital Signs - 8 hr 11/08/22 04:00 11/08/22 09:30 Temperature 98.2 F Pulse Rate 72 76 Respiratory Rate 18 20 Blood Pressure 114/79 118/72 Pulse Oximetry 98 97 Oxygen Delivery Method Room Air Room Air <Immanuel Dowd MD - Last Filed: 11/08/22 11:21> Course Course Narrative: November 08, 2022 at 7:00 a.m.. Sign out from Dr. Hernandez, patient awaiting for social work evaluation. Patient is medically cleared. Alcohol levels are negative. If patient is nonsuicidal, likely be able to discharge home without social work evaluation from our services due to patient having appointment at 10:30 a.m. this morning with her outreach and education social worker/provider. Patient was just seen [facility] yesterday for alcohol Ativan Prozac overdose. Was discharge from that facility. Patient was not detainable. Patient went home, had a garbage truck driver/friend. However drank alcohol again with suicide ideations yesterday afternoon. Patient has been resting comfortably here, has been cooperative. Awaiting for social work evaluation. Patient stated she does have appointment with therapist/counseling this afternoon Orders Ordered: Discontinued Medications Lorazepam (Lorazepam 0.5 Mg Tablet) 1 mg PO NOW ONE Stop: 11/08/22 09:16 Last Admin: 11/08/22 09:25 Dose: 1 mg Documented By: SARAI Nicotine (Nicotine 21 Mg Patch) 21 mg TOP NOW ONE Stop: 11/08/22 03:41 Last Admin: 11/08/22 03:55 Dose: 21 mg Documented By: NEMESIO Nicotine (Nicotine 21 Mg Patch) 21 mg TOP NOW ONE Stop: 11/08/22 09:16 Last Admin: 11/08/22 09:25 Dose: 21 mg Documented By: RB Vital Signs Vital signs: Vital Signs - 8 hr 11/08/22 04:00 11/08/22 09:30 Temperature 98.2 F Pulse Rate 72 76 Respiratory Rate 18 20 Blood Pressure 114/79 118/72 Pulse Oximetry 98 97 Oxygen Delivery Method Room Air Room Air MDM - Psych <Antoinette Mesa MD - Last Filed: 11/08/22 18:07> Lab Data 11/07/22 21:19 11/07/22 21:19 Labs: Lab Results 11/07/22 11/07/22 11/07/22 Range/Units 20:23 20:30 21:19 WBC 5.3 (4.5-11.0) X10^3/uL RBC 3.80 L (4.0-5.2) X10^6/uL Hgb 13.3 (12.0-16.0) g/dL Hct 39.1 (36-46) % MCV 103.0 H (80-100) fL MCH 35.0 H (26-34) PG MCHC 34.0 (30-36) % RDW 14.0 (11.6-14.8) % Plt Count 254 (150-400) X10^3/uL Neut % (Auto) 57.6 (50-75) % Lymph % (Auto) 28.5 (25-40) % [place] % (Auto) 9.7 (3-14) % Eos % (Auto) 2.9 (2-4) % Baso % (Auto) 1.3 (0-2) % Neut # (Auto) 3100 (2051-9925) /uL Lymph # (Auto) 1500 (4767-2927) /uL [place] # (Auto) 500 (0-900) /uL Eos # (Auto) 200 (0-450) /uL Baso # (Auto) 100 (0-100) /uL Sodium (137-145) mmol/L Potassium (3.4-5.1) mmol/L Chloride (98-107) mmol/L Carbon Dioxide (22-32) mmol/L BUN (7-17) mg/dL Creatinine (0.52-1.04) mg/dL Estimated GFR (>60) mL/min BUN/Creatinine Ratio (6-22) Glucose (70-100) mg/dL Calcium (8.4-10.2) mg/dL Total Bilirubin (0.2-1.3) mg/dL AST (14-36) IU/L ALT (<35) IU/L Alkaline Phosphatase (38-126) U/L Total Protein (6.3-8.2) g/dL Albumin (3.5-5.0) g/dL Globulin (1.7-4.1) g/dL Albumin/Globulin Ratio (1.0-2.8) TSH (0.47-4.68) uIU/mL Free T4 (0.78-2.19) ng/dL Urine Color Lt. yellow Urine Appearance Clear Urine pH 6.0 (4.5-8.0) Ur Specific [place] <=1.005 (1.000-1.035) Urine Protein Negative (Negative) Urine Glucose (UA) Negative (Negative) g/dL Urine Ketones Negative (NEGATIVE) Urine Occult Blood Negative (Negative) Urine Nitrate Negative (Negative) Urine Bilirubin Negative (NEGATIVE) Urine Urobilinogen 0.2 (0.2) E.U./dL Ur Leukocyte Esterase Negative (NEGATIVE) Urine RBC None seen (0-5/HPF) Urine WBC 0-1/hpf (0-5/HPF) Ur Squamous Epith Cells None seen (0-5/HPF) Urine Bacteria Occasional (0-1) (None) Ur Culture Indicated? Cult not indicated Salicylates (<20) mg/dL U Opiates 300ng/mL cut Negative (Negative) Ur Oxycodone Screen Negative (Negative) Urine Methadone Screen Negative (Negative) Acetaminophen (10-30) ug/mL Ur Barbiturates Screen Negative (Negative) U Tricyclic Antidepress Negative (Negative) Ur Phencyclidine Scrn Negative (Negative) Ur Amphetamines Screen Negative (Negative) U Methamphetamines Scrn Negative (Negative) Ur MDMA Scrn (Ecstasy) Negative (Negative) U Benzodiazepines Scrn Positive H (Negative) Urine Cocaine Screen Negative (Negative) U Marijuana (THC) Screen Negative (Negative) Ethyl Alcohol ( - 10) mg/dL 11/07/22 11/07/22 11/08/22 Range/Units 21:19 21:19 02:09 WBC (4.5-11.0) X10^3/uL RBC (4.0-5.2) X10^6/uL Hgb (12.0-16.0) g/dL Hct (36-46) % MCV (80-100) fL MCH (26-34) PG MCHC (30-36) % RDW (11.6-14.8) % Plt Count (150-400) X10^3/uL Neut % (Auto) (50-75) % Lymph % (Auto) (25-40) % [place] % (Auto) (3-14) % Eos % (Auto) (2-4) % Baso % (Auto) (0-2) % Neut # (Auto) (2711-2141) /uL Lymph # (Auto) (4945-2992) /uL [place] # (Auto) (0-900) /uL Eos # (Auto) (0-450) /uL Baso # (Auto) (0-100) /uL Sodium 140 (137-145) mmol/L Potassium 3.9 (3.4-5.1) mmol/L Chloride 106 (98-107) mmol/L Carbon Dioxide 21 L (22-32) mmol/L BUN 15 (7-17) mg/dL Creatinine 0.74 (0.52-1.04) mg/dL Estimated GFR > 60 (>60) mL/min BUN/Creatinine Ratio 20.3 (6-22) Glucose 79 (70-100) mg/dL Calcium 8.7 (8.4-10.2) mg/dL Total Bilirubin 0.4 (0.2-1.3) mg/dL AST 38 H (14-36) IU/L ALT 28 (<35) IU/L Alkaline Phosphatase 52 (38-126) U/L Total Protein 7.3 (6.3-8.2) g/dL Albumin 4.0 (3.5-5.0) g/dL Globulin 3.3 (1.7-4.1) g/dL Albumin/Globulin Ratio 1.2 (1.0-2.8) TSH 1.17 (0.47-4.68) uIU/mL Free T4 0.89 (0.78-2.19) ng/dL Urine Color Urine Appearance Urine pH (4.5-8.0) Ur Specific [place] (1.000-1.035) Urine Protein (Negative) Urine Glucose (UA) (Negative) g/dL Urine Ketones (NEGATIVE) Urine Occult Blood (Negative) Urine Nitrate (Negative) Urine Bilirubin (NEGATIVE) Urine Urobilinogen (0.2) E.U./dL Ur Leukocyte Esterase (NEGATIVE) Urine RBC (0-5/HPF) Urine WBC (0-5/HPF) Ur Squamous Epith Cells (0-5/HPF) Urine Bacteria (None) Ur Culture Indicated? Salicylates < 1.0 (<20) mg/dL U Opiates 300ng/mL cut (Negative) Ur Oxycodone Screen (Negative) Urine Methadone Screen (Negative) Acetaminophen < 10 (10-30) ug/mL Ur Barbiturates Screen (Negative) U Tricyclic Antidepress (Negative) Ur Phencyclidine Scrn (Negative) Ur Amphetamines Screen (Negative) U Methamphetamines Scrn (Negative) Ur MDMA Scrn (Ecstasy) (Negative) U Benzodiazepines Scrn (Negative) Urine Cocaine Screen (Negative) U Marijuana (THC) Screen (Negative) Ethyl Alcohol 124 H < 10 ( - 10) mg/dL MDM Narrative Medical decision making narrative: CC: Acute alcohol intoxication with suicidal ideation Complicating co-morbidities: Similar with overdose with benzodiazepines and her prescription antidepressants and discharge from the hospital less than 8 hours prior to presentation at [facility] Corroborating data: Data collected from: patient, Social determinants of health that may influence the patients condition: Recent separation from her , question of alcohol use disorder, overall social instability Medical records reviewed: Records from [facility] Emergency Department including her 8 hour observation stay and social Work consult are reviewed Differential considered: Major depression, alcohol use disorder, acute situatio nal disturbance, suicidal ideation, suicide attempt Exam documented above, pertinent findings include: Fatigued appearing, poor insight overall Lab Test results independently reviewed as above. Pertinent findings: CBC shows no leukocytosis but she does have a mild macrocytosis consistent with chronic alcohol use Chemistries are reassuring with minimally elevated AST again consistent with alcohol use, No evidence of thyroid abnormality Repeat alcohol level at 2:30 a.m. is less than 0. Consultations: Treatments: Sobering Re-evaluations: Patient is clinically and medically sober with no signs of significant withdrawal. She still seems moderately despondent but denies any suicidal or homicidal ideation. Plan is to go home, take shower, had something to eat and keep her appointment with her therapist at 1:00 p.m. later this afternoon with a call to confirm the time for that appointment. I am concerned that she had this exact same presentation for the outreach and education social worker at would be and within 8 hours was again drinking and considering killing herself. 3am she has gone back to sleep and I am not going to disturb her at this time. I would feel much more comfortable if she had a chance to talk to our outreach and education social worker. At this point I do not believe that she is gravely disabled however it is not clear to me that she is safe to be discharged home with current social issues surrounding her ex-, oldest children and current with whom she is . When she wakes up again, we will see what friends she is able to contact for ride home and see if she can arrange for somebody to stay with her for the day to make sure that she is safe and does not began drinking again. Discussion: Disposition: see below, along with detailed discharge instructions that have been reviewed with patient as well as indications for ED re-evaluation and additional outpatient follow up <Immanuel Dowd MD - Last Filed: 11/08/22 11:21> Lab Data Labs: Lab Results 11/07/22 11/07/22 11/07/22 Range/Units 20:23 20:30 21:19 WBC 5.3 (4.5-11.0) X10^3/uL RBC 3.80 L (4.0-5.2) X10^6/uL Hgb 13.3 (12.0-16.0) g/dL Hct 39.1 (36-46) % MCV 103.0 H (80-100) fL MCH 35.0 H (26-34) PG MCHC 34.0 (30-36) % RDW 14.0 (11.6-14.8) % Plt Count 254 (150-400) X10^3/uL Neut % (Auto) 57.6 (50-75) % Lymph % (Auto) 28.5 (25-40) % [place] % (Auto) 9.7 (3-14) % Eos % (Auto) 2.9 (2-4) % Baso % (Auto) 1.3 (0-2) % Neut # (Auto) 3100 (7207-6219) /uL Lymph # (Auto) 1500 (8944-6246) /uL [place] # (Auto) 500 (0-900) /uL Eos # (Auto) 200 (0-450) /uL Baso # (Auto) 100 (0-100) /uL Sodium (137-145) mmol/L Potassium (3.4-5.1) mmol/L Chloride (98-107) mmol/L Carbon Dioxide (22-32) mmol/L BUN (7-17) mg/dL Creatinine (0.52-1.04) mg/dL Estimated GFR (>60) mL/min BUN/Creatinine Ratio (6-22) Glucose (70-100) mg/dL Calcium (8.4-10.2) mg/dL Total Bilirubin (0.2-1.3) mg/dL AST (14-36) IU/L ALT (<35) IU/L Alkaline Phosphatase (38-126) U/L Total Protein (6.3-8.2) g/dL Albumin (3.5-5.0) g/dL Globulin (1.7-4.1) g/dL Albumin/Globulin Ratio (1.0-2.8) TSH (0.47-4.68) uIU/mL Free T4 (0.78-2.19) ng/dL Urine Color Lt. yellow Urine Appearance Clear Urine pH 6.0 (4.5-8.0) Ur Specific [place] <=1.005 (1.000-1.035) Urine Protein Negative (Negative) Urine Glucose (UA) Negative (Negative) g/dL Urine Ketones Negative (NEGATIVE) Urine Occult Blood Negative (Negative) Urine Nitrate Negative (Negative) Urine Bilirubin Negative (NEGATIVE) Urine Urobilinogen 0.2 (0.2) E.U./dL Ur Leukocyte Esterase Negative (NEGATIVE) Urine RBC None seen (0-5/HPF) Urine WBC 0-1/hpf (0-5/HPF) Ur Squamous Epith Cells None seen (0-5/HPF) Urine Bacteria Occasional (0-1) (None) Ur Culture Indicated? Cult not indicated Salicylates (<20) mg/dL U Opiates 300ng/mL cut Negative (Negative) Ur Oxycodone Screen Negative (Negative) Urine Methadone Screen Negative (Negative) Acetaminophen (10-30) ug/mL Ur Barbiturates Screen Negative (Negative) U Tricyclic Antidepress Negative (Negative) Ur Phencyclidine Scrn Negative (Negative) Ur Amphetamines Screen Negative (Negative) U Methamphetamines Scrn Negative (Negative) Ur MDMA Scrn (Ecstasy) Negative (Negative) U Benzodiazepines Scrn Positive H (Negative) Urine Cocaine Screen Negative (Negative) U Marijuana (THC) Screen Negative (Negative) Ethyl Alcohol ( - 10) mg/dL 01/23/23 01/23/23 01/24/23 Range/Units 21:19 21:19 02:09 WBC (4.5-11.0) X10^3/uL RBC (4.0-5.2) X10^6/uL Hgb (12.0-16.0) g/dL Hct (36-46) % MCV (80-100) fL MCH (26-34) PG MCHC (30-36) % RDW (11.6-14.8) % Plt Count (150-400) X10^3/uL Neut % (Auto) (50-75) % Lymph % (Auto) (25-40) % [place] % (Auto) (3-14) % Eos % (Auto) (2-4) % Baso % (Auto) (0-2) % Neut # (Auto) (9207-2402) /uL Lymph # (Auto) (8929-2012) /uL [place] # (Auto) (0-900) /uL Eos # (Auto) (0-450) /uL Baso # (Auto) (0-100) /uL Sodium 140 (137-145) mmol/L Potassium 3.9 (3.4-5.1) mmol/L Chloride 106 (98-107) mmol/L Carbon Dioxide 21 L (22-32) mmol/L BUN 15 (7-17) mg/dL Creatinine 0.74 (0.52-1.04) mg/dL Estimated GFR > 60 (>60) mL/min BUN/Creatinine Ratio 20.3 (6-22) Glucose 79 (70-100) mg/dL Calcium 8.7 (8.4-10.2) mg/dL Total Bilirubin 0.4 (0.2-1.3) mg/dL AST 38 H (14-36) IU/L ALT 28 (<35) IU/L Alkaline Phosphatase 52 (38-126) U/L Total Protein 7.3 (6.3-8.2) g/dL Albumin 4.0 (3.5-5.0) g/dL Globulin 3.3 (1.7-4.1) g/dL Albumin/Globulin Ratio 1.2 (1.0-2.8) TSH 1.17 (0.47-4.68) uIU/mL Free T4 0.89 (0.78-2.19) ng/dL Urine Color Urine Appearance Urine pH (4.5-8.0) Ur Specific [place] (1.000-1.035) Urine Protein (Negative) Urine Glucose (UA) (Negative) g/dL Urine Ketones (NEGATIVE) Urine Occult Blood (Negative) Urine Nitrate (Negative) Urine Bilirubin (NEGATIVE) Urine Urobilinogen (0.2) E.U./dL Ur Leukocyte Esterase (NEGATIVE) Urine RBC (0-5/HPF) Urine WBC (0-5/HPF) Ur Squamous Epith Cells (0-5/HPF) Urine Bacteria (None) Ur Culture Indicated? Salicylates < 1.0 (<20) mg/dL U Opiates 300ng/mL cut (Negative) Ur Oxycodone Screen (Negative) Urine Methadone Screen (Negative) Acetaminophen < 10 (10-30) ug/mL Ur Barbiturates Screen (Negative) U Tricyclic Antidepress (Negative) Ur Phencyclidine Scrn (Negative) Ur Amphetamines Screen (Negative) U Methamphetamines Scrn (Negative) Ur MDMA Scrn (Ecstasy) (Negative) U Benzodiazepines Scrn (Negative) Urine Cocaine Screen (Negative) U Marijuana (THC) Screen (Negative) Ethyl Alcohol 124 H < 10 ( - 10) mg/dL MDM Narrative Medical decision making narrative: CC: Acute alcohol intoxication with suicidal ideation Complicating co-morbidities: Similar with overdose with benzodiazepines and her prescription antidepressants and discharge from the hospital less than 8 hours prior to presentation at [place] Corroborating data: Data collected from: patient, Social determinants of health that may influence the patients condition: Recent separation from her , question of alcohol use disorder, overall social instability Medical records reviewed: Records from [facility] Emergency Department including her 8 hour observation stay and social Work consult are reviewed Differential considered: Major depression, alcohol use disorder, acute situational disturbance, suicidal ideation, suicide attempt Exam documented above, pertinent findings include: Fatigued appearing, poor insight overall Lab Test results independently reviewed as above. Pertinent findings: CBC shows no leukocytosis but she does have a mild macrocytosis consistent with chronic alcohol use Chemistries are reassuring with minimally elevated AST again consistent with alcohol use, No evidence of thyroid abnormality Repeat alcohol level at 2:30 a.m. is less than 0. Treatments: Sobering, Ativan for anxiety. Nicotine patch. Re-evaluations: Patient is clinically and medically sober with no signs of significant withdrawal. She still seems moderately despondent but denies any suicidal or homicidal ideation. Plan is to go home, take shower, had something to eat and keep her appointment with her therapist at 1:00 p.m. later this afternoon with a call to confirm the time for that appointment. I am concerned that she had this exact same presentation for the outreach and education social worker at would be and within 8 hours was again drinking and considering killing herself. 3am she has gone back to sleep and I am not going to disturb her at this time. I would feel much more comfortable if she had a chance to talk to our outreach and education social worker. At this point I do not believe that she is gravely disabled however it is not clear to me that she is safe to be discharged home with current social issues surrounding her ex-, oldest children and current with whom she is . When she wakes up again, we will see what friends she is able to contact for ride home and see if she can arrange for somebody to stay with her for the day to make sure that she is safe and does not began drinking again. Discussion: 9:15 a.m.. Patient is awake alert oriented x4. Clear speech. I re-evaluated patient. She is denying any thoughts of hurting herself or others. She states she ?lost yesterday with all of the pressure with her family ? when she returned from the hospital yesterday afternoon. She only drank alcohol. She states she has a lot going on for the past 10 years. She states her son is in a mental hospital in [place] and will not talk to her. She has an autistic son here living with her and a 3rd son as well. Her is her, he revealed to her that he is walter. She has appointment at 10:30 a.m. this morning with counselor on the [facility]. She has another appointment tomorrow as well. She denies denies denies any thoughts of hurting herself or others. She does not wish to speak with our social work that will be here at noon. She already has appointment at 10:30 a.m. this morning. She has friends that care for her and will drive her. Disposition: see below, along with detailed discharge instructions that have been reviewed with patient as well as indications for ED re-evaluation and additional outpatient follow up Discharge Plan Departure Patient Disposition: Home Clinical Impression: Alcohol intoxication, Major depression, Acute situational disturbance, Depression with suicidal ideation Instructions: DI for Depression -- Adult, DI for Alcohol Use Disorder, DI for Suicidal Ideation-Adult Activity Restrictions/Additional Instructions: No driving or operating machinery today. Please see your counselor at 10:30 a.m. this morning as scheduled as well as tomorrow. Return if worse if any ques tions or concerns. Return immediately any thoughts hurting yourself. Do not drink alcohol. Prescriptions: No Action fluconazole [Diflucan] 150 mg tablet 150 mg PO DAILY Qty: 1 1RF losartan 50 mg tablet 50 mg PO DAILY fluvoxamine 50 mg tablet 50 mg DAILY Label Comments: TAKE 1 TABLET BY MOUTH EVERY EVENING hydroxyzine HCl 25 mg tablet 25 mg PO BEDTIME PRN (Reason: sleep) Qty: 7 0RF Referrals: Brittani Santiago PA-C [Primary Care Provider] - Stand Alone Forms: Patient Portal/API
--- NOTE | 2022-11-08 01:40 | PC.NURSE ---
in talking to pt
--- NOTE | 2022-11-08 01:46 | PC.NURSE ---
pt talking with
--- NOTE | 2022-11-08 02:02 | PC.NURSE ---
pt continuing to want to leave. Dr ordered a blood draw. pt wants her stuff so that she can go outside and vape after explaining that she could not vape on premise and I offered to ask the Dr for a nicotine patch,in which she refuse, I explained that it was against policy to give her stuff back until the Dr determines that she is not a harm to herself and others.
[2022-11-08 02:26] LABS: Ethanol (ETOH) < 10 mg/dL
--- NOTE | 2022-11-08 03:46 | PC.NURSE ---
pt requested a nicotine patch, I infromed the Dr and Nurse. and informed the pt that it was ordered but that it needed to come from upstairs.
[2022-11-08] MEDS: NICOTINE 21 MG PATCH TOP ×2 (03:55→09:25)
[2022-11-08 04:00] VITALS: BP 114/79; PULSE 72; RESP 18; O2SAT 98
--- NOTE | 2022-11-08 08:50 | PC.NURSE ---
0850: Pt removed nictoine patch that was placed at 4am and is asking for a new one since the one she had on wasnt working. Also asking for 5 or 10mg of ativan. Dr Dowd made aware.
[2022-11-08] MEDS: LORazepam 0.5 MG TABLET 1 MG PO (09:25)
[2022-11-08 09:30] VITALS: BP 118/72; PULSE 76; RESP 20; TEMP 36.8; O2SAT 97
== END 2022-11-08 09:31 | disposition home or self-care (01) ==
PROVIDERS: Emergency Medicine; Emergency Provider Emergency Medicine; PCP Physician Assistant
DX: R45.851 Suicidal ideations (principal); F32.9 Major depressive disorder, single episode, unspecified; F10.129 Alcohol abuse with intoxication, unspecified; Y90.6 Blood alcohol level of 120-199 mg/100 ml
CPT/HCPCS: 36415; 80053; 80305; 80320; 80329; 81001; 84439; 84443; 85025; 99284; G0480

== ENCOUNTER 2025-01-19 17:10 | Emergency (ER) | payer OTHER, SELFPAY ==
[2025-01-19 17:31] VITALS: BP 121/63; PULSE 78; RESP 16; TEMP 36.1; O2SAT 97; BMI 25.7
[2025-01-19 17:44] VITALS: PULSE 73; RESP 15; O2SAT 96
[2025-01-19 17:45] VITALS: BP 139/90; PULSE 71; RESP 24
--- NOTE | 2025-01-19 17:52 | PC.NURSE ---
I walked into the room to do an evaluation on the patient. introduced myself . She reported I am an alcoholic and why the fuck does this matter. I started to speak and she yelled at me to get the fuck out, you have no bedside manner. I asked her not to please don't speak that way. I offered emotional support . She yelled at me and said I am a and you need to thank me. I thanked patient for her service. I walked out of room to call the lab to come draw her labs. I offered to place an IV and she declined. Upon my return to the room, pt said she was sorry. I told her there was no need to apologize that I am here to help her. Lab called and I offered emotional support to her and her boyfriend. WANDA Corcoran was in the room and witnessed the event.
[2025-01-19 18:00] VITALS: BP 109/67; PULSE 58; RESP 20; O2SAT 97
[2025-01-19 18:09] LABS: Add Manual Diff / Slide Review NO; Basophils Absolute Auto 100 /uL (0-100); Basophils Percent Auto 1.8 % (0-2); Eosinophils Absolute Auto 100 /uL (0-450); Eosinophils Percent Auto 2.7 % (2-4); Hematocrit 41.3 % (36-46); Hemoglobin 14.1 g/dL (12.0-16.0); Lymphocytes Absolute Auto 1200 /uL (1100-4500); Lymphocytes Percent Auto 24.2 % (25-40); Mean Corpuscular HGB Conc 34.1 % (30-36); Mean Corpuscular Hemoglobin 34.2 PG (26-34); Mean Corpuscular Volume 100.3 fL (80-100); Monocytes Absolute Auto 500 /uL (0-900); Monocytes Percent Auto 10.3 % (3-14); Neutrophils Absolute Auto 3100 /uL (1500-7000); Platelet Count 224 X10^3/uL (150-400); Red Blood Cell Count 4.12 X10^6/uL (4.0-5.2); Red Cell Distribution Width 14.2 % (11.6-14.8); White Blood Cell Count 5.1 X10^3/uL (4.5-11.0)
--- NOTE | 2025-01-19 18:14 | ED.GIBLEED ---
HPI - GI Bleed General Chief complaint: GI Bleed Stated complaint: rectal bleeding Time Seen by Provider: 01/19/25 17:29 History of Present Illness HPI Narrative: 44-year-old female history of hysterectomy admits to chronic alcoholism presents with rectal bleeding today with 3 bowel movements that showed blood in the toilet bowl but did not noticed any dark tarry stools. Patient did report that she did feel constipated and she did have to strain to have a few bowel movements. No recent antibiotic use or foreign travel. Denies any UTI symptoms of dysuria urgency frequency back pain fever or chills. She has not had a colonoscopy before and there is no family history of colon cancer. Other than what is stated 14 point review of system is negative Related Data Home Medications Medication Instructions Recorded Confirmed losartan 50 mg tablet 50 mg PO DAILY 05/30/22 07/07/22 fluvoxamine 50 mg tablet 50 mg DAILY 06/06/22 07/07/22 Previous Rx's Medication Instructions Recorded hydroxyzine HCl 25 mg tablet 25 mg PO BEDTIME PRN sleep #7 tabs 06/06/22 fluconazole 150 mg tablet 150 mg PO DAILY #1 tab 06/16/22 (Diflucan) pantoprazole 40 mg tablet,delayed 40 mg PO DAILY #30 tabs 01/19/25 release (Protonix) polyethylene glycol 3350 17 17 g PO DAILY #238 grams 01/19/25 gram/dose oral powder (Miralax) Allergies Allergy/AdvReac Type Severity Reaction Status Date / Time No Known Drug Allergies Allergy Verified 07/07/22 10:21 Review of Systems Review of Systems ROS Unobtainable: All systems reviewed & are unremarkable except as noted in HPI and below Patient History Medical History (Updated 01/19/25 @ 19:54 by Faraz Carroll DO) Psoriasis PTSD (post-traumatic stress disorder) Depression Herpes (~1999) Abnormal uterine bleeding (AUB) Severe dysmenorrhea Pelvic pain No significant medical problems Surgical History (Updated 07/08/22 @ 22:07 by Olivia Amador MD) Status post laparoscopic supracervical hysterectomy (06/09/22) Anesthesia Breast cyst (~1998) Family History (Updated 05/15/22 @ 19:54 by Olivia Amador MD) Mother Diabetes mellitus Hypertension Hyperlipidemia Mental health problem Breast cancer Social History household members: spouse and children alcohol intake: current alcohol intake frequency: 3 or more drinks per day Exam Narrative Exam Narrative: GENERAL: [44] year old patient appears stated age. Well-developed patient, in mild distress. HEAD: Atraumatic. Normocephalic. EYES: Pupils equal round and reactive. Extraocular motions intact. No scleral icterus. No injection or drainage. ENT: Nose without bleeding, purulent drainage. Throat without erythema, tonsillar hypertrophy or exudate. Airway patent. NECK: Trachea midline. Non tender CARDIOVASCULAR: Regular rate and rhythm without murmurs, gallops, or rubs. RESPIRATORY: Clear to auscultation. Breath sounds equal bilaterally. No wheezes, rales, or rhonchi. GASTROINTESTINAL: Abdomen soft, non-tender, nondistended. Rectum: NO anal fissure or hemorrhoids. Guiac positive on stool card EXTREMITIES: No edema or joint tenderness. BACK: Nontender without deformity or crepitance. No flank tenderness. NEURO: AOx3. SKIN: No rash or erythema of visible areas Initial Vital Signs Initial Vital Signs: Vital Signs Temperature 97.0 F L 01/19/25 17:31 Pulse Rate 78 01/19/25 17:31 Respiratory Rate 16 01/19/25 17:31 Blood Pressure 121/63 01/19/25 17:31 Pulse Oximetry 97 01/19/25 17:31 Oxygen Delivery Method Room Air 01/19/25 17:31 Course Orders Ordered: ED Orders 01/19/25 17:29 GI Panel (Film Array) Stat 01/19/25 17:38 Urine Culture Stat Urine Microscopic Stat 01/19/25 17:53 CBC Auto Diff [Complete Blood Count AUTO DIFF] Stat CMP [Comprehensive Metabolic Panel] Stat Prothrombin Time INR Stat 01/19/25 18:25 CT abdomen pelvis wo con Stat Ondansetron HCl (Ondansetron 4 Mg/2 Ml Inj) 4 mg IV NOW PRN PRN Reason: Nausea And Vomiting Ondansetron HCl (Ondansetron 4 Mg Odt) 4 mg SL NOW PRN PRN Reason: Nausea And Vomiting Vital Signs Vital signs: Vital Signs - 8 hr 01/19/25 17:31 01/19/25 17:44 01/19/25 17:45 Temperature 97.0 F L Pulse Rate 78 73 71 Respiratory Rate 16 15 24 Blood Pressure 121/63 Pulse Oximetry 97 96 Oxygen Delivery Method Room Air 01/19/25 17:45 01/19/25 18:00 01/19/25 18:00 Temperature Pulse Rate 58 L Respiratory Rate 20 Blood Pressure 139/90 109/67 Pulse Oximetry 97 Oxygen Delivery Method Room Air MDM - GI Bleed Lab Data 01/19/25 17:53 01/19/25 17:53 Labs: Lab Results 01/19/25 01/19/25 Range/Units 17:38 17:53 WBC 5.1 (4.5-11.0) X10^3/uL RBC 4.12 (4.0-5.2) X10^6/uL Hgb 14.1 (12.0-16.0) g/dL Hct 41.3 (36-46) % MCV 100.3 H (80-100) fL MCH 34.2 H (26-34) PG MCHC 34.1 (30-36) % RDW 14.2 (11.6-14.8) % Plt Count 224 (150-400) X10^3/uL Neut % (Auto) 61.0 (50-75) % Lymph % (Auto) 24.2 L (25-40) % [place] % (Auto) 10.3 (3-14) % Eos % (Auto) 2.7 (2-4) % Baso % (Auto) 1.8 (0-2) % Neut # (Auto) 3100 (5698-2382) /uL Lymph # (Auto) 1200 (6803-5568) /uL [place] # (Auto) 500 (0-900) /uL Eos # (Auto) 100 (0-450) /uL Baso # (Auto) 100 (0-100) /uL PT 10.6 (9.4-12.5) SECONDS INR 0.9 (0.9-1.3) Sodium 143 (137-145) mmol/L Potassium 4.2 (3.4-5.1) mmol/L Chloride 105 (98-107) mmol/L Carbon Dioxide 22 (22-32) mmol/L BUN 16 (7-17) mg/dL Creatinine 0.73 (0.52-1.04) mg/dL Estimated GFR > 60 (>60) mL/min BUN/Creatinine Ratio 21.9 (6-22) Glucose 99 (70-100) mg/dL Calcium 9.2 (8.4-10.2) mg/dL Total Bilirubin 0.4 (0.2-1.3) mg/dL AST 73 H (14-36) IU/L ALT 69 H (<35) IU/L Alkaline Phosphatase 64 (38-126) U/L Total Protein 7.9 (6.3-8.2) g/dL Albumin 4.8 (3.5-5.0) g/dL Globulin 3.1 (1.7-4.1) g/dL Albumin/Globulin Ratio 1.5 (1.0-2.8) Urine RBC None seen (0-5/HPF) Urine WBC 5-10/hpf H (0-5/HPF) Ur Squamous Epith Cells 1-5 /hpf (0-5/HPF) Urine Bacteria Many (>30) H (None) Urine Mucus 2+ H (Negative) Ur Culture Indicated? Specimen cultured Vol Urine Centrifuged 10ml (spun) Point of Care Testing Test Results Negative Urine Dip Bedside Urine Glucose Negative Bedside Urine Bilirubin - Negative Bedside Urine Ketone - Negative Urine Specific [place] 1.015 Bedside Urine Occult Blood + Bedside Urine pH 6.0 Bedside Urine Protein - Negative Bedside Urine Urobilinogen - Negative Bedside Urine Nitrite - Negative Bedside Urine Leukocytes ++ 125 Esterase Discharge Plan Departure Patient Disposition: Home Clinical Impression: Acute alcoholic gastritis with hemorrhage Constipation Qualifiers: Constipation type: slow transit constipation Qualified Code(s): K59.01 - Slow transit constipation Instructions: DI for Constipation Activity Restrictions/Additional Instructions: Return with new or worsening symptoms. Take your medicines as directed. Follow up PCP in 1 week Prescriptions: New polyethylene glycol 3350 [Miralax] 17 gram/dose powder 17 g PO DAILY Qty: 238 0RF pantoprazole [Protonix] 40 mg tablet,delayed release (DR/EC) 40 mg PO DAILY Qty: 30 0RF No Action fluconazole [Diflucan] 150 mg tablet 150 mg PO DAILY Qty: 1 1RF losartan 50 mg tablet 50 mg PO DAILY fluvoxamine 50 mg tablet 50 mg DAILY Patient Comments: TAKE 1 TABLET BY MOUTH EVERY EVENING hydroxyzine HCl 25 mg tablet 25 mg PO BEDTIME PRN (Reason: sleep) Qty: 7 0RF Referrals: Brittani Santiago PA-C [Primary Care Provider] - Stand Alone Forms: Patient Portal/API/Survey
[2025-01-19 18:16] LABS: Alanine Aminotransferase 69 IU/L (<35); Albumin 4.8 g/dL (3.5-5.0); Albumin Globulin Ratio 1.5 (1.0-2.8); Alkaline Phosphatase 64 U/L (38-126); Aspartate Aminotransferase 73 IU/L (14-36); BUN Creatinine Ratio 21.9 (6-22); Bilirubin Total 0.4 mg/dL (0.2-1.3); Blood Urea Nitrogen 16 mg/dL (7-17); Calcium 9.2 mg/dL (8.4-10.2); Carbon Dioxide 22 mmol/L (22-32); Chloride 105 mmol/L (98-107); Estimated Glomerular Filt Rate > 60 mL/min (>60); Globulin 3.1 g/dL (1.7-4.1); Glucose 99 mg/dL (70-100); HEMOLYSIS < 15 (0-50); INR 0.9 (0.9-1.3); Potassium 4.2 mmol/L (3.4-5.1); Prothrombin Time 10.6 SECONDS (9.4-12.5); Sodium 143 mmol/L (137-145); Total Protein 7.9 g/dL (6.3-8.2)
--- NOTE | 2025-01-19 18:25 | DI.CT.S_ITS ---
PROCEDURE: CT ABDOMEN PELVIS WO CON INDICATIONS: abd pain/rectal bleeding TECHNIQUE: Axial sections were acquired from the lung bases to the pubic symphysis. Coronal and sagittal reformats were performed. For radiation dose reduction, the following was used: automated exposure control, adjustment of mA and/or kV according to patient size. COMPARISON: None. FINDINGS: Image quality: Diagnostic. Lower Chest: No significant findings. URINARY: Right Kidney: No stones or hydronephrosis. Right Ureter: No hydroureter. Left Kidney: No stones or hydronephrosis. Left Ureter: No hydroureter. Bladder: Normal wall thickness. No stones. ABDOMEN: Liver: No contour-deforming solid mass. Gallbladder: No radiopaque gallstones or wall thickening. Biliary ducts: No biliary dilation. Pancreas: No ductal dilation. Spleen: Size is within normal limits. Adrenal Glands: No adrenal nodules. Stomach and Bowel: Normal colonic caliber, without significant wall thickening. Peritoneum: No abnormal intraperitoneal fluid. No free air. Ventral Wall: No hernia. Abdominal Nodes: No enlarged retroperitoneal or mesenteric lymph nodes. Vessels: Aorta and inferior vena cava are normal in size. PELVIS: Pelvic Organs: Hysterectomy. Pelvic Nodes: Unremarkable. Miscellaneous: No inguinal hernias are seen. Bones: Unremarkable. IMPRESSION: No obstructing stones or hydronephrosis. No acute CT findings in the abdomen and pelvis Approved by: Parish Tierney M.D. on 01/19/2025 at 18:11
[2025-01-19 18:38] LABS: RBC Urine None Seen (0-5/HPF); Urine Volume 10mL (spun)
[2025-01-19 18:39] LABS: Bacteria Urine Many (>30); Culture Indicated Urine Specimen Cultured; Mucus Urine 2+ (Negative); Squamous Epithelial Cell Urine 1-5 /HPF (0-5/HPF); WBC Urine 5-10/HPF (0-5/HPF)
[2025-01-19 19:59] VITALS: BP 118/77; PULSE 82; RESP 18; TEMP 36.8; O2SAT 95
== END 2025-01-19 19:59 | disposition home or self-care (01) ==
PROVIDERS: Emergency Medicine; Emergency Provider Family Medicine; PCP Physician Assistant
DX: K29.21 Alcoholic gastritis with bleeding (principal); K59.01 Slow transit constipation
CPT/HCPCS: 74176; 80053; 81003; 81015; 81025; 85025; 85610; 87086; 99282; 99284

== ENCOUNTER 2025-02-09 16:18 | Emergency (ER) | payer OTHER, SELFPAY ==
[2025-02-09 16:21] VITALS: PULSE 89; RESP 24; O2SAT 100; BMI 33.3
--- NOTE | 2025-02-09 16:40 | DI.RAD.S_ITS ---
PROCEDURE: XR RIBS LT MIN 3V W [id number] INDICATIONS: fall down multiple stairs unable extreme pain TECHNIQUE: 2 views of the ribs were acquired, along with a single view chest. COMPARISON: None. FINDINGS: Surgical changes and devices: None. Bones and chest wall: No fractures or dislocations. No suspicious bony lesions. Overlying soft tissues appear unremarkable. Limited by motion artifact Lungs and pleura: No pleural effusions or pneumothorax. Lungs appear clear. Mediastinum: Mediastinal contours appear normal. Heart size is normal. IMPRESSION: No displaced rib fracture or pneumothorax. Limited by motion artifact. Approved by: Parish Tierney M.D. on 02/09/2025 at 16:31
[2025-02-09] MEDS: ACETAMINOPHEN 325 MG TABLET 975 MG PO (16:54)
== END 2025-02-09 17:39 | disposition left against medical advice (07) ==
PROVIDERS: Emergency Provider Emergency Medicine; PCP Physician Assistant
DX: S29.9XXA Unspecified injury of thorax, initial encounter (principal); W10.9XXA Fall (on) (from) unspecified stairs and steps, initial encounter
CPT/HCPCS: 71101; 99283